=== PATIENT | male | born 1930 | race Caucasian/White ===

== ENCOUNTER 2016-11-24 17:55 | Inpatient (IN) | payer OTHER ==
[~2016-11-24] VITALS: Ht 182.9 cm; Wt 92.5 kg
--- NOTE | 2016-11-24 18:32 | ED NURSING NOTES ---
Clinical Report - Nurses [facility] [place] [address] 11/24/2016 17:56 Patient: PHILLIP COSTA TRIAGE Triage time 18:01. Acuity: LEVEL 3. Chief Complaint: INJURY TO THE LEFT HIP. --18:04 Carmen Lyon R.N. 18:01 11/24/16. BP: 139/86. HR: 79. RR: 18. O2 saturation: 95%. O2 started via nasal cannula at 3 liters/minute. Temp: 97.6 F. Pain level now: 04/25. --18:04 Carmen Lyon R.N. Weight: 93.8 kg stated. Height/Length: 72 inches Per Patient. BMI: 28.1. --17:59 Carmen Lyon R.N. Medications Percocet Oral 5/325 mg, 3x a day as needed (pt reports sometimes he takes this 1-2 times per day. ). --18:05 Carmen Lyon R.N. Aspirin Childrens Oral. --18:06 Carmen Lyno R.N. Allergies No Known Drug Allergy. --17:58 Carmen Lyon R.N. History This occurred just prior to arrival. Mechanism of injury: fell. Treatment ADMISSIONS CLINICIAN: (SHEETED BY MEDICS). PAST MEDICAL HX: Hypertension. Tetanus status: up-to-date. Immunizations: up-to-date. ( COPD). SOCIAL HX: Smoker- current status unknown. Alcohol use; consumes one beer occasionally. Last drink was months ago. History of drug use. (never). No infectious disease exposure. FALL RISK ASSESSMENT: Fall risk assessment completed. Risk factors identified include severe pain and patient history of fall. Fall interventions initiated. Side rails up x2. --18:04 Carmen Lyon R.N. ( left leg internally rotated, shortened.). --18:06 Carmen Lyon R.N. PAST MEDICAL HX: Hypertension. ( copd). --18:24 Carmen Lyon R.N. PAST MEDICAL HX: ( chronic pain). --18:24 Carmen Lyon R.N. Interventions ID band on patient. To treatment room. --18:04 Carmen Lyon R.N. PHYSICAL ASSESSMENT GENERAL / NEURO / PSYCH: Oriented X 4. Alert. Appears in no acute distress. EXTREMITIES: Neuro-vascular status intact to the extremity. Left hip: tenderness. Limited ROM (diminished internal rotation). The left leg is shortened. SKIN: Skin is warm and dry. --18:39 Carmen Lyon R.N. GENERAL / NEURO / PSYCH: Oriented X 4. Alert. Appears in no acute distress. Appears in pain. EXTREMITIES: Limited ROM present in the left lower leg. Capillary refill is less than 2 seconds in the extremities. Extremity pulses are within normal limits. Neuro-vascular status intact to the extremity. ( pt still complaining of left hip pain). SKIN: Skin intact. Skin is warm and dry. --19:15 Wilbert Marshall R.N. 19:13 11/24/16. BP: 136/78. HR: 82. RR: 18. O2 saturation: 94% on room air. Temp: 97.8 F (oral). --19:15 Wilbert Marshall R.N. NURSING PROGRESS NOTES 18:07 11/24/2016 Site #1 started via IV in the left antecubital space with an 18g angiocath; one attempt. Blood drawn: rainbow set. Labeled in the presence of the patient and sent to the lab. --18:07 Carmen Lyon R.N. Patient identifiers checked. Call light placed in reach. Side rails up x 2. Bed placed in lowest position. Brakes of bed on. --18:07 Carmen Lyon R.N. 18:32 11/24/2016 Started bag #1 1000 mL IV Fluids IV NS (Saline); at 1000 mL/hr over 1 hour(s) via site #1. Allergies verified. IV patency established. IV site checked: no pain, redness, or swelling. IV flushed thoroughly pre- and post-medication administration. --18:32 Carmen Lyon R.N. 18:32 11/24/2016 Toradol IVP 30 mg given over 2 minute(s) via site #1. Allergies verified and confirmed 5 rights. IV patency established. IV site checked: no pain, redness, or swelling. IV flushed thoroughly pre- and post-medication administration. --18:32 Carmen Lyon R.N. 18:33 11/24/2016 Dilaudid (HYDROmorphone HCl PF) IVP 1 mg given over 1 minute(s) via site #1. Confirmed 5 rights and sedative warning given to the patient. --18:33 Carmen Lyon R.N. 18:33 11/24/2016 Zofran (Ondansetron HCl) IVP 4 mg given over 1 minute(s) via site #1. Allergies verified and confirmed 5 rights. IV patency established. IV site checked: no pain, redness, or swelling. IV flushed thoroughly pre- and post-medication administration. --18:33 Carmen Lyon R.N. ( report given to Wilbert GONZALEZ). --19:02 Pepe Graham R.N. Extremities: Neuro-vascular status intact to the extremities. Neuro-vascular extremity check. Reassessment after medication administered. Overall patient status is the same- he states feels the same. GENERAL / NEURO / PSYCH: The patient reports pain that is located in the left hip is still present. Alert. Oriented X 4. RESPIRATORY: No respiratory distress. CVS: Capillary refill less than 2 seconds. SKIN: Skin is warm and dry. Side rails up x 2. Bed placed in lowest position. Brakes of bed on. Patient waiting for admit bed. --19:17 Wilbert Marshall R.N. ( Report given to Teresa GONZALEZ for patient transfer to the [facility] floor 2, room 204. RN made aware that patient is being consulted by MD at present and will need pelvic binder (not available in ER-charge nurse confirmed) once patient is on the floor.). --19:45 Wilbert Marshall R.N. 19:30 11/24/2016 IV Fluids IV NS Discontinued: bag #1 completed. Total amount infused: 1000 mL. IV patency established. IV site checked: no pain, redness, or swelling. IV flushed thoroughly. --20:05 Cassandra Mcmanus. DISPOSITION / DISCHARGE Admitted to Acute Care. Transported via stretcher by [employer] with O2. Report was given to a nurse. Report included patient's care, treatment, medications, reviewed medication reconcilliation, and condition (including any recent changes or anticipated changes). All questions were answered. Report was acknowledged and care was transferred. Patient's personal items; items were placed in belongings bag, given to the patient and family and transported with the patient. --20:10 Wilbert Marshall R.N. 20:08 11/24/16. BP: 153/82. HR: 80. RR: 16. O2 saturation: 94% on nasal cannula at 2 liters/minute. O2 started via nasal cannula at 2 liters/minute. Temp: deferred. --20:10 Wilbert Marshall R.N. Departure time: 20:10. --20:10 Wilbert Marshall R.N. Locked/Released at 11/24/2016 20:10 by Wilbert Marshall R.N.
--- NOTE | 2016-11-24 18:32 | ED ORDER SUMMARY ---
..... Patient: PHILLIP COSTA OrderSheet [facility] VisitID: [id number] [address] [place] [address] 86y, M Registration Date/Time: 11/24/2016 ORDER SHEET Weight: 93.8 kg (stated) Allergies: No Known Drug Allergy GENERAL ORDERS: Hip 2V Left w AP Pelvis Urgent (18:03 11/24/2016 HBivens A.R.N.P.) (Ack 18:06 OSnell) (18:33 MCampbell) CBC w Diff Urgent (18:11/24/2016 HBivens A.R.N.P.) (Ack 18:06 OSnell) (20:04 HSoule) CMP Urgent (18:11/24/2016 HBivens A.R.N.P.) (Ack 18:06 OSnell) (20:04 HSoule) Chest 1V Urgent (18:27 11/24/2016 HBivens A.R.N.P.) (Ack 18:31 OSnell) (18:33 MCampbell) - (pelvic binder) (18:33 11/24/2016 HBivens A.R.N.P.) (Ack 18:34 OSnell) (19:35 HSoule) MEDICATION ORDERS: IV FLUIDS: IV NS : initial bolus 1000 mL (1000 mL/hr), then none - (NOW) (18:03 11/24/2016 HBivens A.R.N.P.) (18:32 SStone R.N.) Toradol IV 30 mg (NOW) (18:11/24/2016 HBivens A.R.N.P.) (18:32 SStone R.N.) IV Saline Lock (18:11/24/2016 HBivens A.R.N.P.) (18:31 SStone R.N.) Dilaudid IV 1 mg (HIGH ALERT MEDICATION, NOW) (18:11/24/2016 HBivens A.R.N.P.) (18:33 SStone R.N.) Zofran IV 4 mg (NOW) (18:11/24/2016 HBivens A.R.N.P.) (18:33 SStyarely Marshall) ORDER SHEET NOTES: [Electronically signed by Wilbert Marshall R.N. (20:11/24/2016)] [Electronically locked/signed by Wilbert Marshall R.N. (:11/24/2016)]
--- NOTE | 2016-11-24 18:32 | ED CLINICAL REPORT ---
Clinical Report - Physicians/Mid Levels [facility] [address] [place] [address] 11/24/2016 17:56 Patient: PHILLIP COSTA Time Seen: 1757; upon arrival, initial patient contact, initial documentation, patient care assumed. Arrived- By ambulance. Historian- patient. HISTORY OF PRESENT ILLNESS Chief Complaint: FALL. Location of injuries- left hip. The injury occurred just prior to arrival. Fell while walking and landed on the ground; slipped. Occurred at home. The patient complains of moderate pain. No blow to the head, neck pain, loss of consciousness or seizure. Not dazed. (pcp - [facility]). REVIEW OF SYSTEMS The patient complains of pain on weight bearing. No numbness, loss of vision, chest pain, difficulty breathing or weakness. No abdominal pain or laceration. All systems otherwise negative, except as recorded above. PAST HISTORY See nurses notes. Hypertension. Chronic obstructive pulmonary disease. Umbilical hernia. Back pain. ( Chronic Pain). SOCIAL HISTORY Occasional alcohol use. History of drug use. No recent travel. Is a local resident. FAMILY HISTORY No significant family medical history. ADDITIONAL NOTES The nursing notes have been reviewed with agreement regarding the chief complaint, HPI, ROS, PMH and patient medications and allergies. PHYSICAL EXAM Vital Signs: 11/24/2016 18:01 BP: 139/86. HR: 79. RR: 18. O2 saturation: 95%. Temp: 97.6 F. Pain level now: 1010. Have been reviewed as normal and appear to be correct. Appearance: Alert. Oriented X3. No acute distress. Head: Head non-tender. No swelling of head. Eyes: Pupils equal, round and reactive to light. EOM intact. ENT: No dental injury. Pharynx normal. Neck: Painless ROM. Non-tender. Non-tender. CVS: Heart sounds normal. Pulses normal. Respiratory: Breath sounds normal. Chest nontender. Abdomen: No visible injury. Soft and nontender. Small, tender mass present in the periumbilical area (umbilical hernia). No pulsatile mass present. No guarding present. Mass present. Back: No tenderness. Abnormal ROM. (rom not assessed due to pelvic injury). Skin: Skin intact. Skin warm and dry. Normal skin color. Normal skin turgor. Extremities: Abnormal inspection. Extremities not atraumatic. Pelvis not stable. Left hip: mild tenderness located in the anterior and lateral aspect of the hip. The left leg is shortened and internally rotated. Limited ROM secondary to pain (diminished abduction, adduction, flexion, extension and external and internal rotation). Neurovascular intact distally. No erythema, swelling, laceration, abrasion or ecchymosis. No puncture wound, foreign body or deformity. No lower extremity edema. Neuro: Oriented X 3. No motor deficit. No sensory deficit. LABS, X-RAYS, AND EKG X-Rays: Chest X-ray. Left hip. Chest X-ray: (IMPRESSION: 1. Cardiomegaly with mild pulmonary vascular congestion 2. Bronchitis 3. Bibasilar plate-like atelectasis versus scarring. 4. Hiatal hernia Electronically Final signed by:Vimal Stone MD 11/24/2016 6:42:34 PM). The X-rays were interpreted by the radiologist and contemporaneously by me. Lt Hip X-ray: (IMPRESSION: 1. Left hip subcapital fracture 2. Findings suggestive of Paget's disease Electronically Final signed by:Vimal Stone MD 11/24/2016 6:40:28 PM). The X-rays were interpreted by the radiologist and contemporaneously by me. PROGRESS AND PROCEDURES Course of Care: 1832. pt ate sweet roll and 1/2 cup of coffee around 1300 today, pt will do surgery if they say it is ok, and commented 'they need to fix me' [address] Klein, re admit, will be down to er to see pt 1914. Dr Klein here. Discussed case with on-call health care provider, ([address] baisn, wants pt admitted to hospitalist for clearance for surgery and he will consult and see pt after). Reviewed test results. Agreed upon treatment plan and decision to admit. Health care provider will see patient in hospital. Patient counseled in person regarding the patient's stable condition, test results, diagnosis and need for admission and surgery. 1833. Differential Diagnosis: Other possible considerations: fall, hip fx, dislocation, sprain, contusions, lacs, abrasions. Above considerations are based on history, physical exam, reassessment and X-Ray data. Differential diagnosis was discussed with patient. Disposition: Admitted to Acute Care. 18:32. CLINICAL IMPRESSION Fall on same level by tripping. (Electronically signed by Lisbet Sotelo A.R.N.P. 11/24/2016 20:45) Addenda for PHILLIP COSTA VisitID: [id number] Date: 11/24/2016 11/24/2016 20:12 19:57 11/24/2016 Site #[address] upon admission; patent, no pain and no signs of infection or infiltration. Flushed with 10 mL saline; flushes easily. (Electronically signed by Cassandra Mcmanus 11/24/2016 20:12)
--- NOTE | 2016-11-24 18:32 | ED CLINICAL REPORT ---
Clinical Report - Physicians/Mid Levels [facility] [address] [place] [address] 11/24/2016 17:56 Patient: PHILLIP COSTA Time Seen: 1757; upon arrival, initial patient contact, initial documentation, patient care assumed. Arrived- By ambulance. Historian- patient. HISTORY OF PRESENT ILLNESS Chief Complaint: FALL. Location of injuries- left hip. The injury occurred just prior to arrival. Fell while walking and landed on the ground; slipped. Occurred at home. The patient complains of moderate pain. No blow to the head, neck pain, loss of consciousness or seizure. Not dazed. (pcp - [facility]). REVIEW OF SYSTEMS The patient complains of pain on weight bearing. No numbness, loss of vision, chest pain, difficulty breathing or weakness. No abdominal pain or laceration. All systems otherwise negative, except as recorded above. PAST HISTORY See nurses notes. Hypertension. Chronic obstructive pulmonary disease. Umbilical hernia. Back pain. ( Chronic Pain). SOCIAL HISTORY Occasional alcohol use. History of drug use. No recent travel. Is a local resident. FAMILY HISTORY No significant family medical history. ADDITIONAL NOTES The nursing notes have been reviewed with agreement regarding the chief complaint, HPI, ROS, PMH and patient medications and allergies. PHYSICAL EXAM Vital Signs: 11/24/2016 18:01 BP: 139/86. HR: 79. RR: 18. O2 saturation: 95%. Temp: 97.6 F. Pain level now: 1010. Have been reviewed as normal and appear to be correct. Appearance: Alert. Oriented X3. No acute distress. Head: Head non-tender. No swelling of head. Eyes: Pupils equal, round and reactive to light. EOM intact. ENT: No dental injury. Pharynx normal. Neck: Painless ROM. Non-tender. Non-tender. CVS: Heart sounds normal. Pulses normal. Respiratory: Breath sounds normal. Chest nontender. Abdomen: No visible injury. Soft and nontender. Small, tender mass present in the periumbilical area (umbilical hernia). No pulsatile mass present. No guarding present. Mass present. Back: No tenderness. Abnormal ROM. (rom not assessed due to pelvic injury). Skin: Skin intact. Skin warm and dry. Normal skin color. Normal skin turgor. Extremities: Abnormal inspection. Extremities not atraumatic. Pelvis not stable. Left hip: mild tenderness located in the anterior and lateral aspect of the hip. The left leg is shortened and internally rotated. Limited ROM secondary to pain (diminished abduction, adduction, flexion, extension and external and internal rotation). Neurovascular intact distally. No erythema, swelling, laceration, abrasion or ecchymosis. No puncture wound, foreign body or deformity. No lower extremity edema. Neuro: Oriented X 3. No motor deficit. No sensory deficit. LABS, X-RAYS, AND EKG X-Rays: Chest X-ray. Left hip. Chest X-ray: (IMPRESSION: 1. Cardiomegaly with mild pulmonary vascular congestion 2. Bronchitis 3. Bibasilar plate-like atelectasis versus scarring. 4. Hiatal hernia Electronically Final signed by:Vimal Stone MD 11/24/2016 6:42:34 PM). The X-rays were interpreted by the radiologist and contemporaneously by me. Lt Hip X-ray: (IMPRESSION: 1. Left hip subcapital fracture 2. Findings suggestive of Paget's disease Electronically Final signed by:Vimal Stone MD 11/24/2016 6:40:28 PM). The X-rays were interpreted by the radiologist and contemporaneously by me. PROGRESS AND PROCEDURES Course of Care: 1832. pt ate sweet roll and 1/2 cup of coffee around 1300 today, pt will do surgery if they say it is ok, and commented 'they need to fix me' [address] Klein, re admit, will be down to er to see pt 1914. Dr Klein here. Discussed case with on-call health care provider, ([address] bains, wants pt admitted to hospitalist for clearance for surgery and he will consult and see pt after). Reviewed test results. Agreed upon treatment plan and decision to admit. Health care provider will see patient in hospital. Patient counseled in person regarding the patient's stable condition, test results, diagnosis and need for admission and surgery. 1833. Differential Diagnosis: Other possible considerations: fall, hip fx, dislocation, sprain, contusions, lacs, abrasions. Above considerations are based on history, physical exam, reassessment and X-Ray data. Differential diagnosis was discussed with patient. Disposition: Admitted to Acute Care. 18:32. CLINICAL IMPRESSION Fall on same level by tripping. (Electronically signed by Lisbet Sotelo A.R.N.P. 11/24/2016 20:45) Addenda for PHILLIP COSTA VisitID: [id number] Date: 11/24/2016 11/24/2016 20:12 19:57 11/24/2016 Site #[address] upon admission; patent, no pain and no signs of infection or infiltration. Flushed with 10 mL saline; flushes easily. (Electronically signed by Cassandra Mcmanus 11/24/2016 20:12)
--- NOTE | 2016-11-24 18:32 | ED ORDER SUMMARY ---
..... Patient: PHILLIP COSTA OrderSheet [facility] VisitID: [id number] [address] [place] [address] 86y, M Registration Date/Time: 11/24/2016 ORDER SHEET Weight: 93.8 kg (stated) Allergies: No Known Drug Allergy GENERAL ORDERS: Hip 2V Left w AP Pelvis Urgent (18:03 11/24/2016 HBivens A.R.N.P.) (Ack 18:06 OSnell) (18:33 MCampbell) CBC w Diff Urgent (18:11/24/2016 HBivens A.R.N.P.) (Ack 18:06 OSnell) (20:04 HSoule) CMP Urgent (18:11/24/2016 HBivens A.R.N.P.) (Ack 18:06 OSnell) (20:04 HSoule) Chest 1V Urgent (18:27 11/24/2016 HBivens A.R.N.P.) (Ack 18:31 OSnell) (18:33 MCampbell) - (pelvic binder) (18:33 11/24/2016 HBivens A.R.N.P.) (Ack 18:34 OSnell) (19:35 HSoule) MEDICATION ORDERS: IV FLUIDS: IV NS : initial bolus 1000 mL (1000 mL/hr), then none - (NOW) (18:03 11/24/2016 HBivens A.R.N.P.) (18:32 SStone R.N.) Toradol IV 30 mg (NOW) (18:11/24/2016 HBivens A.R.N.P.) (18:32 SStone R.N.) IV Saline Lock (18:11/24/2016 HBivens A.R.N.P.) (18:31 SStone R.N.) Dilaudid IV 1 mg (HIGH ALERT MEDICATION, NOW) (18:11/24/2016 HBivens A.R.N.P.) (18:33 SStone R.N.) Zofran IV 4 mg (NOW) (18:11/24/2016 HBivens A.R.N.P.) (18:33 SStyarely Marshall) ORDER SHEET NOTES: [Electronically signed by Wilbert Marshall R.N. (20:11/24/2016)] [Electronically locked/signed by Wilbert Marshall R.N. (:11/24/2016)]
--- NOTE | 2016-11-24 18:40 | DIAGNOSTIC IMAGING REPORT ---
PROCEDURE: XR HIP 2VW W W/O AP PELVIS-LT INDICATION: TRAUMA/INJURY TECHNIQUE: AP view of the pelvis and hips with lateral view of the left hip. COMPARISON: None. FINDINGS: LEFT HIP: Subcapital hip fracture with varus angulation PELVIS: Osteopenia. Thickening of the left iliopectineal line and left inferior pubic ramus suspicious for Paget's disease. Right lower quadrant coils consistent with mesh. Severe degenerative changes of the distal lumbar spine. IMPRESSION: 1. Left hip subcapital fracture 2. Findings suggestive of Paget's disease
--- NOTE | 2016-11-24 18:42 | DIAGNOSTIC IMAGING REPORT ---
PROCEDURE: XR CHEST 1 VIEW INDICATION: TRAUMA TECHNIQUE: Portable AP view 06:32 p.m. COMPARISON: None. FINDINGS: Mild bibasilar atelectasis versus scarring. Bronchial wall thickening. Mild cardiomegaly with mild pulmonary vascular congestion. Medial left basilar opacity suggestive of a hiatal hernia. Thorax is normal. IMPRESSION: 1. Cardiomegaly with mild pulmonary vascular congestion 2. Bronchitis 3. Bibasilar plate-like atelectasis versus scarring. 4. Hiatal hernia
[2016-11-24 20:26] VITALS: BP 136/76
--- NOTE | 2016-11-24 20:45 | ED MAR SUMMARY ---
..... Medication Administration Record [facility] [address] [place] [address] Patient: PHILLIP COSTA Visit ID: [id number] 86y, M Weight: 93.8 kg Height/Length: 72 in BMI: 28.1 ALLERGIES: No Known Drug Allergy Start 18:32 11/24/2016 Carmen Lyon R.N., Stop 19:30 11/24/2016 Cassandra Mcmanus, Medication Administered: IV NS (SALINE), Dose: IV Fluids over 1 hour(s), Rate: 1000 mL/hr, Dispensed: 1000 mL bag, Site: #1 left AC. Medication Ordered: IV NS : initial bolus 1000 mL (1000 mL/hr), then none - (NOW). Given 18:11/24/2016 Carmen Lyon R.N. Medication Administered: TORADOL [IVP], Dose: 30 mg IVP over 2 minute(s), Site: #1 left AC. Medication Ordered: Toradol IV 30 mg (NOW). Given 18:33 11/24/2016 Carmen Lyon R.N. Medication Administered: DILAUDID [IVP] (HYDROMORPHONE HCL PF), Dose: 1 mg IVP over 1 minute(s), Site: #1 left AC. Medication Ordered: Dilaudid IV 1 mg (HIGH ALERT MEDICATION, NOW). Given 18:11/24/2016 Carmen Lyon R.N. Medication Administered: ZOFRAN [IVP] (ONDANSETRON HCL), Dose: 4 mg IVP over 1 minute(s), Site: #1 left AC. Medication Ordered: Zofran IV 4 mg (NOW).
--- NOTE | 2016-11-24 20:45 | ED MAR SUMMARY ---
..... Medication Administration Record [facility] [address] [place] [address] Patient: PHILLIP COSTA Visit ID: [id number] 86y, M Weight: 93.8 kg Height/Length: 72 in BMI: 28.1 ALLERGIES: No Known Drug Allergy Start 18:32 11/24/2016 Carmen Lyon R.N., Stop 19:30 11/24/2016 Cassandra Mcmanus, Medication Administered: IV NS (SALINE), Dose: IV Fluids over 1 hour(s), Rate: 1000 mL/hr, Dispensed: 1000 mL bag, Site: #1 left AC. Medication Ordered: IV NS : initial bolus 1000 mL (1000 mL/hr), then none - (NOW). Given 18:11/24/2016 Carmen Lyon R.N. Medication Administered: TORADOL [IVP], Dose: 30 mg IVP over 2 minute(s), Site: #1 left AC. Medication Ordered: Toradol IV 30 mg (NOW). Given 18:33 11/24/2016 Carmen Lyon R.N. Medication Administered: DILAUDID [IVP] (HYDROMORPHONE HCL PF), Dose: 1 mg IVP over 1 minute(s), Site: #1 left AC. Medication Ordered: Dilaudid IV 1 mg (HIGH ALERT MEDICATION, NOW). Given 18:11/24/2016 Carmen Lyon R.N. Medication Administered: ZOFRAN [IVP] (ONDANSETRON HCL), Dose: 4 mg IVP over 1 minute(s), Site: #1 left AC. Medication Ordered: Zofran IV 4 mg (NOW).
--- NOTE | 2016-11-24 20:45 | ED MED RECONCILIATION SUMMARY ---
Patient: PHILLIP COSTA Medication Reconciliation Report [facility] VisitID: [id number] [address] [place] [address] 86y, M Registration Date/Time: 11/24/2016 Weight: 93.8 kg Height/Length: 72 in. BMI: 28.1 ALLERGIES: No Known Drug Allergy The patient's Home Medications are listed below: THE FOLLOWING MEDICATIONS NEED TO BE RECONCILED: Aspirin Childrens Oral Percocet Oral 5/325 mg, 3x a day, pt reports sometimes he takes this 1-2 times per day. The source(s) of the original Home Medication information: Not obtained. The following Medications were given to the patient in the Emergency Department: IV NS IV Fluids bolus 0, then 1000 mL/hr, administered: 11/24/2016 6:32:00 PM Toradol [IVP] IVP 30 mg, administered: 11/24/2016 6:32:00 PM Dilaudid [IVP] IVP 1 mg, administered: 11/24/2016 6:33:00 PM Zofran [IVP] IVP 4 mg, administered: 11/24/2016 6:33:00 PM The following Medications were prescribed to the patient: None.
--- NOTE | 2016-11-24 20:45 | ED DISCHARGE INSTRUCTIONS ---
Patient: PHILLIP COSTA General Instructions [facility] VisitID: [id number] [address] [place] [address] 86y, M Registration Date/Time: 11/24/2016 Fall on same level by tripping. (Electronically signed by Lisbet Sotelo A.R.N.P. 11/24/2016 20:45)
--- NOTE | 2016-11-24 20:45 | ED MED RECONCILIATION SUMMARY ---
Patient: PHILLIP COSTA Medication Reconciliation Report [facility] VisitID: [id number] [address] [place] [address] 86y, M Registration Date/Time: 11/24/2016 Weight: 93.8 kg Height/Length: 72 in. BMI: 28.1 ALLERGIES: No Known Drug Allergy The patient's Home Medications are listed below: THE FOLLOWING MEDICATIONS NEED TO BE RECONCILED: Aspirin Childrens Oral Percocet Oral 5/325 mg, 3x a day, pt reports sometimes he takes this 1-2 times per day. The source(s) of the original Home Medication information: Not obtained. The following Medications were given to the patient in the Emergency Department: IV NS IV Fluids bolus 0, then 1000 mL/hr, administered: 11/24/2016 6:32:00 PM Toradol [IVP] IVP 30 mg, administered: 11/24/2016 6:32:00 PM Dilaudid [IVP] IVP 1 mg, administered: 11/24/2016 6:33:00 PM Zofran [IVP] IVP 4 mg, administered: 11/24/2016 6:33:00 PM The following Medications were prescribed to the patient: None.
--- NOTE | 2016-11-24 20:45 | ED DISCHARGE INSTRUCTIONS ---
Patient: PHILLIP COSTA General Instructions [facility] VisitID: [id number] [address] [place] [address] 86y, M Registration Date/Time: 11/24/2016 Fall on same level by tripping. (Electronically signed by Lisbet Sotelo A.R.N.P. 11/24/2016 20:45)
--- NOTE | 2016-11-24 21:05 | Progress Note ---
Subjective General Admission History and Physical Examination Patient Name: Alber Hawk Admission Date: November 24, 2016 Primary Care Provider: [facility] Attending Physician: Claudio Gonzalez M.D. Admitting Physician: Reid Klein M.D. Code Status: FULL CODE Room: 204 A Status: Inpatient: Acute Care SUBJECTIVE Historian: Patient Reliability: Fair good Chief Complaint: Left hip pain Left femoral neck fracture Injury related to a fall. History of Present Illness: The patient is a 86-year-old white male () with a significant past medical history of COPD, hypertension, osteoarthritis (100% [place] disability), congestive heart failure, who presented to [facility] emergency room on the day of admission secondary to complaints of left hip pain secondary to a fall that occurred 30-60 minutes prior to arrival to the [facility] ED. The ED evaluation was consistent with left femoral neck fracture. Patient was consolable by orthopedic surgery who recommended general medicine admission to manage patient' s history of heart failure, COPD and osteoarthritis. Secondary to the above, the patient was admitted by Reid Klein M.D. for further evaluation and treatment. Patient reports that he stepped off his deck at home and fell 4 feet onto the left buttock. Patient experienced extreme lower back pain. Patient was able to drag himself to the phone. From there he called his daughter and the medics. Medics arrived to the scene. 20 minutes later. Patient was transported to [facility] ED. Upon arrival. X-ray was taken of the left hip. Findings were consistent with a left femoral neck fracture. Patient otherwise has been stable without signs. Respiratory distress. Normal cardiac response stiffness. Normal vitals. Patient reports that he feels dry in his mouth and skin. Patient requesting to have sponges to wipe out his mouth. PAST MEDICAL HISTORY Illnesses: 1. COPD 2. Hypertension 3. Osteoarthritis 4. Paget's disease of the bone Allergies: 1. NKDA Medications: 1. Symbicort 1 inhalation every 12 hours. 2. Spiriva one inhalation every 24 hours 3. Albuterol 1-2 puffs every 4 hours as needed for shortness of breath 4. Lasix 20 mg daily as needed for swelling 5. 20 mEq potassium chloride by mouth taken with potassium with Lasix. 6. Oxycodone-acetaminophen oral 5-325 7. Carvedilol 3.125 mg twice a day. Surgery: left foot orthopedic procedure hernia repair Injuries: 1. Prior injuries to the back and foot. Hospitalizations: 1. [facility] administrative hospitalization more than 20 years ago. FAMILY HISTORY Parents: 1. Fathe, , 2. Mother, Children: Four Adult children Other significant family history: None SOCIAL HISTORY 1. Marital Status: single 2. Evangelical: unknown 3. Education: unknown 4. Employment History: Disability 5. Occupational health exposures: Reports of multiple risks with the . HABITS 1. Tobacco: Reports that he discontinued 3 years ago use, stopped smoking recently 2. Drugs: None 3. Alcohol: Currently drinking beer; reports of up to one beer per evening. 4. Caffeine: Unknown HEALTH SUPERVISION Item/Test unknown Veterans administrative IMMUNIZATIONS: Unknown ADVANCED DIRECTIVES: 1. Living well: No 2. POLST: No 3. Code Status: FULL CODE; with limitations 4. Durable [employer] [facility] care: Patient reports that he would want his daughter, Betzy called. In the event occurred 5. Donor card: No REVIEW OF SYSTEMS Remarkable for those things stated in the history of present illness and past medical history. Seventeen point review of system completed with the following notable findings: Constitutional Denies: Chills, Sweats. Eyes Denies: Vision Change. ENT Denies: Ear Discharge, Other. Respiratory SOB w/exertion, Wheezing. Cardiovascular Denies: Palpitations. Gastrointestinal Denies: Abdominal Pain, Diarrhea. Musculoskeletal Other (left hip pain). Skin Other (dryness of skin). Physical Exam Vital Signs / I&Os Vital Signs Date Time Temp Pulse Resp B/P Pulse O2 O2 Flow FiO2 Ox Delivery Rate 11/24 2025 97.5 89 18 136/76 94 Room Air 2.0 General Appearance Oriented X3, Cooperative HEENT Atraumatic, PERRLA Lungs Clear to auscultation, Normal air movement Neck Supple, No JVD Cardiovascular Regular rate and rhythm, Normal S1 and S2, systolic II/ murmur Abdomen Soft, No tenderness, umbilical hernia, protuberant abdomen Extremities No clubbing, No edema, mild deformity of bilateral feet with VALGUS deformity of bilateral hallux remoteSurgical incision site., exhibits asymmetry and resting position and bilateral hips and feet. Tenderness over most superior part of the pelvis/ to the neck of the Femur Skin No Rashes LAB Results Laboratory Tests 05/11 1818 Chemistry Plasma Sodium (136 - 145 mmol/L) 141 Plasma Potassium (3.5 - 5.1 mmol/L) 3.8 Plasma Chloride (98 - 107 mmol/L) 103 CO2 (Enzymatic) (21 - 32 mmol/L) 27 BUN (7 - 18 mg/dL) 25 Creatinine (0.6 - 1.3 mg/dL) 1.8 Est GFR ( Amer) (mL/min) 46.54 Est GFR (Non-Af Amer) (mL/min) 38.40 Glucose (70 - 110 mg/dL) 120 Plasma Calcium (8.5 - 10.1 mg/dL) 8.8 Total Bilirubin (0.0 - 1.0 mg/dL) 0.4 AST (15 - 37 U/L) 26 ALT (12 - 78 U/L) 25 Alkaline Phosphatase (46 - 116 U/L) 72 Total Protein (6.4 - 8.2 g/dL) 7.7 Albumin (3.3 - 5.0 g/dL) 3.6 Hematology WBC (4.5 - 11.5 K/uL) 9.7 RBC (4.50 - 5.90 M/uL) 4.36 Hgb (13.5 - 17.5 gm/dL) 13.1 Hct (41.0 - 53.0 %) 39.6 MCV (80 - 100 fL) 91 MCH (26 - 34 pg) 30 RDW (11.6 - 14.8 %) 13.6 Neut % (Auto) (50 - 75 %) 71.8 Lymph % (Auto) (25 - 40 %) 18.5 [place] % (Auto) (3 - 14 %) 6.7 Eos % (Auto) (0 - 4 %) 2.6 Baso % (Auto) (0 - 2 %) 0.4 Plt Count, EDTA (150 - 400 K/uL) 243 PUBS MCHC (31 - 37 g/dL) 33 Imaging Chest x-ray. 1. Cardiomegaly with mild pulmonary vascular congestion 2. Bronchitis 3. Bibasilar plate-like atelectasis versus scarring. Hip x-ray 1. Left hip subcapital fracture 2. Findings suggestive of Paget's disease Assessment and Plan Problem List 1. COPD (chronic obstructive pulmonary disease) Plan Patient currently on 4 L of O2, maintaining sats above 92%. He is at risk for challenging management during ventilatory procedures. Patient will undergo a low cardiac risk procedure for the left hip. The setting of a Paget's bone disease, leading to excess bleeding. It is recommended the patient be on a lower risk procedure Continue to support the airway. duoNebs every 4-6 hours Advair twice a day Continue with nasal cannula O2, maintain saturations above 92%. 2. Osteoarthritis Plan Multiple arthritic joints in the upper and lower spine. Seen today with fracture left hip. Patient with history of Paget's disease of bone. Patient is followed through the veterans administrative program 3. Hypertension Plan Plan to monitor and maintain blood pressure Maintain on an BRENDA inhibitor and beta bert at this time. 4. 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 [facility]. Consider low cardiac risk for orthopedic procedure. However, in this circumstance of a Paget's disease and typical prolonged bleeding following manipulation. He will be efficacious to avoid the more radical procedure. Attempt to optimize cardiac function. 5. Paget's disease of bone Plan Paget's disease has a higher risk for bleed; caution with aggressive proceedings. 6. Left displaced femoral neck fracture Status Acute Onset Date 11/24/16 Plan Femoral neck fracture. Orthopedic consulted. Current status: Guarded, unstable Anticipated discharge date: Anticipated discharge in 2-3 day Anticipated discharge placement: Home Patient care time: Time spent in chart review, patient interview, physical exam, CPOE, and care documentation: 70 minutes Visit to patient today: 1 Complexity of care: [id number] Initial patient evaluation: Emergency department DVT prophylaxis: Mechanical; GI ppx , Fametidine 20 mg by mouth twice a day
--- NOTE | 2016-11-24 22:26 | Progress Note ---
Subjective General ADVANCED CARE PLAN History of Present Illness 86-year-old white male () with a significant past medical history of COPD , hypertension, osteoarthritis (100% [place] disability), congestive heart failure, who presented to [facility] emergency room on the day of admission secondary to complaints of left hip pain secondary to a fall that occurred 30-60 minutes prior to arrival to the [facility] ED. The ED evaluation was consistent with left femoral neck fracture. Patient was consolable by orthopedic surgery who recommended general medicine admission to manage patient's history of heart failure, COPD and osteoarthritis. Secondary to the above, the patient was admitted by Reid Klein M.D. for further evaluation and treatment. A discussion was undertaken with the patient regarding previous advance care arrangements/decisions. The following advanced directives were noted by the patient and discussed with me at the time of admission. ADVANCED DIRECTIVES: 1. Living well: not available 2. POLST: none 3. CODE STATUS: full with limitations 4. [facility] care: Betzy Hawk, daughter. 5. Donor card: none He has opted not to pursue intubation/mechanical ventilation, CPR, electrical cardioversion, or life-sustaining efforts involving drugs at the time of cardiopulmonary arrest. The patient has a Full Code with limitations The patient's wishes were documented in the chart and orders regarding the patient's wishes entered into the [employer] CPOE system. The "Advance Care Plan Document" was not distributed to patient to discuss with his family. Less than 30 minutes was spent in performing the above tasks and documentation of the patient's advanced care plan.
--- NOTE | 2016-11-24 22:26 | Progress Note ---
Subjective General ADVANCED CARE PLAN History of Present Illness 86-year-old white male () with a significant past medical history of COPD , hypertension, osteoarthritis (100% [place] disability), congestive heart failure, who presented to [facility] emergency room on the day of admission secondary to complaints of left hip pain secondary to a fall that occurred 30-60 minutes prior to arrival to the [facility] ED. The ED evaluation was consistent with left femoral neck fracture. Patient was consolable by orthopedic surgery who recommended general medicine admission to manage patient's history of heart failure, COPD and osteoarthritis. Secondary to the above, the patient was admitted by Reid Klein M.D. for further evaluation and treatment. A discussion was undertaken with the patient regarding previous advance care arrangements/decisions. The following advanced directives were noted by the patient and discussed with me at the time of admission. ADVANCED DIRECTIVES: 1. Living well: not available 2. POLST: none 3. CODE STATUS: full with limitations 4. [facility] care: Betzy Hawk, daughter. 5. Donor card: none He has opted not to pursue intubation/mechanical ventilation, CPR, electrical cardioversion, or life-sustaining efforts involving drugs at the time of cardiopulmonary arrest. The patient has a Full Code with limitations The patient's wishes were documented in the chart and orders regarding the patient's wishes entered into the [employer] CPOE system. The "Advance Care Plan Document" was not distributed to patient to discuss with his family. Less than 30 minutes was spent in performing the above tasks and documentation of the patient's advanced care plan.
--- NOTE | 2016-11-24 22:38 | Consultation Report ---
Admission Admit Date 11/24/16 History Chief Complaint Left groin, lateral hip and low back pain. 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 Thought he fractured his back but was able to get up to phone but unable to bear weight or walk due to "twisted" (externally rotated) L lower extremity. 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 Brought to [place] ED where x-rays showed varus impacted L subcapital femoral neck fx, perserved hip joint space but extensive Pagetic bone changes. Admitted to Hospitalist. Dr. Klein cleared for surgery tomorrow but concerned that prolonged surgery or extensive blood loss may make it difficult to get him off the ventilator. Pt and his adult children interviewed and chart reviewed. Denies hx MRSA, DVT/PE, bleeding disorder. Patient History 1. Left displaced femoral neck fracture 2. COPD (chronic obstructive pulmonary disease) 3. Osteoarthritis 4. Hypertension 5. CHF (congestive heart failure), NYHA class II 6. Paget's disease of bone Social History Lives alone with pets. Is full code. Daughter, Betzy Hawk [phone], son Ed [phone] and his at bedside. Advance Directive None (Full code per hospitalist note) Medications and Allergies Medications Current Medications Sig/Ya Start time Last Medication Dose Route Stop Time Status Admin Pantoprazole Sodium 40 MG DAILY@0600 05/ 0600 AC IV Fluticasone/ See Dose RTBID 11/24 2021 AC Salmeterol Insts (1) IN Albuterol/Ipratropium 3 ML Q6H PRN 11/24 2014 AC IN Al Hydrox/Mg Hydrox/ 15 ML Q1H PRN 11/25 1999 AC Simethicone PO Atropine Sulfate 0.5 MG Q3MIN PRN 11/25 1999 AC IV Hydromorphone HCl 1 MG Q3H PRN 11/25 1999 AC IV Lactated Ringer's 1,000 ML ASDIRECTED 11/25 1999 AC IV Lidocaine HCl See Dose ONCE PRN 11/25 1999 AC Insts (2) IV Magnesium Hydroxide 10 ML DAILY PRN 11/25 1999 AC PO Morphine Sulfate 2 MG Q3M PRN 11/25 1999 AC IV Naloxone HCl 0.4 MG PRN PRN 11/25 1999 AC IV Nitroglycerin 0.4 MG Q5M PRN 11/25 1999 AC SL Zolpidem Tartrate 5 MG QHS PRN 11/25 1999 AC PO Ondansetron HCl 4 MG Q4H PRN 11/24 1899 AC IV Sodium Chloride 1,000 ML ASDIRECTED 11/24 1899 AC 11/24 IV 2039 Dose Instructions: (1)Fluticasone/Salmeterol: 1 CLICK (2)Lidocaine HCl: 1.5 MG/KG Allergies Coded Allergies: NKA (11/24/16) Review of Systems Constitutional Denies: Fever, Chills, Sweats, Weakness, Malaise. Respiratory SOB w/exertion. Denies: Cough, Dry, Wheezing, Hemoptysis, Pleuritic Pain, Sputum. Cardiovascular Denies: Chest Pain, Palpitations, Orthopnea, PND, Edema, Light-headedness. Musculoskeletal Neck Pain, Shoulder Pain, Back Pain, Leg Pain. Skin Denies: Rash, Lesions, Jaundice, Bruising. Neurological Numbness. Denies: Weakness, Incoordination, Change in speech, Confusion, Seizures. Physical Exam Vital Signs / I&Os Vital Signs Date Time Temp Pulse Resp B/P Pulse O2 O2 Flow FiO2 Ox Delivery Rate 11/24 2025 36.4 89 18 136/76 94 Room Air 2.0 General Appearance Alert, Oriented X3, Cooperative, No acute distress HEENT Atraumatic, EOMI Lungs Normal air movement Neck Normal exam Extremities L LE externally rotated but not short. Tender at L greater trochanter. 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 Skin No Rashes, No Breakdown, No Significant Lesions Neurological Normal speech (subjectively dec SILT B feet), Sensation intact, No lateralizing signs Psych/Mental Status Mental status normal, Mood normal LAB Results Laboratory Tests 11/24 1817 Chemistry Plasma Sodium (136 - 145 mmol/L) 141 Plasma Potassium (3.5 - 5.1 mmol/L) 3.8 Plasma Chloride (98 - 107 mmol/L) 103 CO2 (Enzymatic) (21 - 32 mmol/L) 27 BUN (7 - 18 mg/dL) 25 Creatinine (0.6 - 1.3 mg/dL) 1.8 Est GFR ( Amer) (mL/min) 46.54 Est GFR (Non-Af Amer) (mL/min) 38.40 Glucose (70 - 110 mg/dL) 120 Plasma Calcium (8.5 - 10.1 mg/dL) 8.8 Total Bilirubin (0.0 - 1.0 mg/dL) 0.4 AST (15 - 37 U/L) 26 ALT (12 - 78 U/L) 25 Alkaline Phosphatase (46 - 116 U/L) 72 Total Protein (6.4 - 8.2 g/dL) 7.7 Albumin (3.3 - 5.0 g/dL) 3.6 Hematology WBC (4.5 - 11.5 K/uL) 9.7 RBC (4.50 - 5.90 M/uL) 4.36 Hgb (13.5 - 17.5 gm/dL) 13.1 Hct (41.0 - 53.0 %) 39.6 MCV (80 - 100 fL) 91 MCH (26 - 34 pg) 30 RDW (11.6 - 14.8 %) 13.6 Neut % (Auto) (50 - 75 %) 71.8 Lymph % (Auto) (25 - 40 %) 18.5 [place] % (Auto) (3 - 14 %) 6.7 Eos % (Auto) (0 - 4 %) 2.6 Baso % (Auto) (0 - 2 %) 0.4 Plt Count, EDTA (150 - 400 K/uL) 243 PUBS MCHC (31 - 37 g/dL) 33 Imaging PROCEDURE: XR CHEST 1 VIEW INDICATION: TRAUMA TECHNIQUE: Portable AP view 06:32 p.m. COMPARISON: None. FINDINGS: Mild bibasilar atelectasis versus scarring. Bronchial wall thickening. Mild cardiomegaly with mild pulmonary vascular congestion. Medial left basilar opacity suggestive of a hiatal hernia. Thorax is normal. IMPRESSION: 1. Cardiomegaly with mild pulmonary vascular congestion 2. Bronchitis 3. Bibasilar plate-like atelectasis versus scarring. 4. Hiatal hernia Dictated by: ANAM QUINTEROS MD Pelvic & L Hip x-ray: Varus impacted L subcapital femoral neck fx with preserved hip joint space and extensive corsening of trabecular patern and tickening of cortical bone c/w Pagets dz of bone. Assessment and Plan Problem List 1. Left displaced femoral neck fracture Onset Date 11/24/16 Status Acute Plan Discussed options of Hemiarthroplasty versus closed reduction and cannulated screw fixation. Risks of hemiarthroplasty are great with Pagetic bone known to bleed extensively and prolonged surgery risks cariopulmonary complication including inability to get of ventilator, as well as risks of fx, dislocation, infection, nerve injury, limb length inequality, DVT/PE and as well as failure to obtain goals of restored ability to ambulate and transfer/sit up etc. Risks of non-op treatment include DVT/PE, pain, decubiti, pneumonia and . Alternative of closed reduction and cannulated screw fixation has MUCH lower risks of bleeding, infection, nerve injury, but risks persistent fx pain, nonunion, avascular necrosis (AVN) with collapse and screw cutout with need for total hip replacement in months. After extensive discussions with pt, family and hospitalist; patient has selected closed reduction and cannulated screw fixation. Conmsent signed, site marked, OR scheduled for 7 am. NPO after midnight. Will get back x-rays after hip fx stabilized to reduce risk of disimpacting fx and having increased displacement which can increase risk of AVN. 2. COPD (chronic obstructive pulmonary disease) 3. Osteoarthritis 4. Hypertension 5. CHF (congestive heart failure), NYHA class II 6. Paget's disease of bone
[2016-11-24 22:40] VITALS: BP 117/74
[2016-11-24] MEDS ORDERED: ALBUTEROL HFA60 DOSE IN (22:57)
[2016-11-24] MEDS ORDERED: SYMBICORT1 AE1 IN (22:58)
[2016-11-24] MEDS ORDERED: ASPIRIN81 M1 PO (23:00)
[2016-11-24] MEDS ORDERED: CHLORTHALIDONE25 MG PO (23:03)
[2016-11-24] MEDS ORDERED: COZAAR100 MG PO (23:04)
[2016-11-24] MEDS ORDERED: PRILOSEC20 MG PO (23:06)
[2016-11-24] MEDS ORDERED: TERAZOSIN HCL1 MG PO (23:08)
[2016-11-24] MEDS ORDERED: POLYETHYLENE3350 MG PO (23:10)
[2016-11-24] MEDS ORDERED: OMEPRAZOLE40 MG PO (23:17)
[2016-11-24] MEDS ORDERED: PERCOCET1 TA1 PO (23:22)
[2016-11-24] MEDS ORDERED: OXAYDO5 MG PO (23:34)
[2016-11-25] VITALS (10 sets, daily range): BP systolic 121–142; BP diastolic 47–71
--- NOTE | 2016-11-25 06:43 | Progress Note ---
Subjective General Note Date: November 25, 2016 Admission Date: November 24, 2016 Hospital Day: 2 PCP: Unknown Status: Inpatient, ACU Advanced Directive: FULL CODE Room: 204-A Brief History: The patient is a 86-year-old white male () with a significant past medical history of COPD, hypertension, osteoarthritis (100% [place] disability), congestive heart failure, who presented to [facility] emergency room on the day of admission secondary to complaints of left hip pain secondary to a fall that occurred 30-60 minutes prior to arrival to the [facility] ED. The ED evaluation was consistent with left femoral neck fracture. Patient was seen by orthopedic surgery who recommended general medicine admission to manage patient's history of heart failure, COPD and osteoarthritis. Secondary to the above, the patient was admitted by Reid Klein M.D. for further evaluation and treatment with orthopedic consultation by Dr. Dylan Mccoy. For other history present illness, past medical history, family history, social history, review of systems, and admission physical examination please see the patient's history and physical examination and ER visit note in the patient's medical record. Subjective: The patient states he is doing well. No complaints of mainly postop. Patient requests: None Medications and Allergies Medications Current Medications Sig/Ya Start time Last Medication Dose Route Stop Time Status Admin Terazosin HCl 10 MG QHS 11/25 2100 AC PO Losartan Potassium 100 MG DAILY 11/25 1533 AC 11/25 PO 1639 Cefazolin Sodium/ 100 ML Q8HR 11/25 1400 AC 11/25 Dextrose IV 11/26 0620 1402 Aspirin 325 MG BID 11/25 0900 AC PO 01/05 2101 Pantoprazole Sodium 40 MG DAILY@0600 11/25 0600 AC 11/25 IV 0614 Fluticasone/ See Dose RTBID 11/24 2021 AC Salmeterol Insts (1) IN Albuterol/Ipratropium 3 ML Q6H PRN 11/24 2014 AC IN Al Hydrox/Mg Hydrox/ 15 ML Q1H PRN 11/25 1999 AC Simethicone PO Atropine Sulfate 0.5 MG Q3MIN PRN 11/25 1999 AC IV Hydromorphone HCl 1 MG Q3H PRN 11/25 1999 AC 11/25 IV 1353 Lactated Ringer's 1,000 ML ASDIRECTED 11/25 1999 AC IV Lidocaine HCl See Dose ONCE PRN 11/25 1999 AC Insts (2) IV Magnesium Hydroxide 10 ML DAILY PRN 11/25 1999 AC PO Morphine Sulfate 2 MG Q3M PRN 11/25 1999 AC IV Naloxone HCl 0.4 MG PRN PRN 11/25 1999 AC IV Nitroglycerin 0.4 MG Q5M PRN 11/25 1999 AC SL Zolpidem Tartrate 5 MG QHS PRN 11/25 1999 AC PO Ondansetron HCl 4 MG Q4H PRN 11/24 1899 AC IV Sodium Chloride 1,000 ML ASDIRECTED 11/24 1899 AC 11/25 IV 0614 Dose Instructions: (1)Fluticasone/Salmeterol: 1 CLICK (2)Lidocaine HCl: 1.5 MG/KG Allergies Coded Allergies: NKA (11/25/16) Physical Exam Vital Signs / I&Os Vital Signs Date Time Temp Pulse Resp B/P Pulse O2 O2 Flow FiO2 Ox Delivery Rate 11/25 0640 92 Nasal 5.0 Cannula 11/25 0634 98.2 93 20 131/62 88 Nasal 2.0 Cannula 11/25 0221 98.2 90 17 142/68 92 Nasal 2.0 Cannula 11/25 0048 2.0 11/24 2345 Nasal 2.0 Cannula 11/24 2240 97.9 96 17 117/74 93 Room Air 2.0 11/24 2025 97.5 89 18 136/76 94 Room Air 2.0 General Appearance Cooperative, No acute distress, slightly lethargic Neurological Cranial nerves intact, Strength 5/5 x4 ext's, No lateralizing signs Psych/Mental Status Confused, slightly lethargic LAB Results Laboratory Tests 11/25 11/25 11/24 0546 0546 1818 Chemistry Plasma Sodium (136 - 145 mmol/L) 144 141 Plasma Potassium (3.5 - 5.1 mmol/L) 4.3 3.8 Plasma Chloride (98 - 107 mmol/L) 109 103 CO2 (Enzymatic) (21 - 32 mmol/L) 27 27 BUN (7 - 18 mg/dL) 28 25 Creatinine (0.6 - 1.3 mg/dL) 1.7 1.8 Est GFR ( Amer) (mL/min) 49.71 46.54 Est GFR (Non-Af Amer) (mL/min) 41.01 38.40 Glucose (70 - 110 mg/dL) 111 120 Hemoglobin A1c % (4.5 - 6.2 %) 5.6 Plasma Calcium (8.5 - 10.1 mg/dL) 8.0 8.8 Plasma Magnesium (1.8 - 2.4 mg/dL) 1.7 Total Bilirubin (0.0 - 1.0 mg/dL) 0.4 AST (15 - 37 U/L) 26 ALT (12 - 78 U/L) 25 Alkaline Phosphatase (46 - 116 U/L) 72 Total Protein (6.4 - 8.2 g/dL) 7.7 Albumin (3.3 - 5.0 g/dL) 3.6 Triglycerides (30 - 200 mg/dL) 44 Cholesterol (140 - 200 mg/dL) 168 LDL Cholesterol, Calc (mg/dL) 103 HDL Cholesterol (32 - 96 mg/dL) 57 LDL/HDL Ratio 1.8 Cholesterol/HDL Ratio 2.9 Coronary Risk Interp (0.4 - 1.0) 0.7 Hematology WBC (4.5 - 11.5 K/uL) 9.7 RBC (4.50 - 5.90 M/uL) 4.36 Hgb (13.5 - 17.5 gm/dL) 13.1 Hct (41.0 - 53.0 %) 39.6 MCV (80 - 100 fL) 91 MCH (26 - 34 pg) 30 RDW (11.6 - 14.8 %) 13.6 Neut % (Auto) (50 - 75 %) 71.8 Lymph % (Auto) (25 - 40 %) 18.5 [place] % (Auto) (3 - 14 %) 6.7 Eos % (Auto) (0 - 4 %) 2.6 Baso % (Auto) (0 - 2 %) 0.4 Plt Count, EDTA (150 - 400 K/uL) 243 PUBS MCHC (31 - 37 g/dL) 33 Imaging Chest X-Ray IMPRESSION: 1. Cardiomegaly with mild pulmonary vascular congestion 2. Bronchitis 3. Bibasilar plate-like atelectasis versus scarring. 4. Hiatal hernia Dictated by: ANAM QUINTEROS MD D: MARY JANE;11/24/16 4600 Assessment and Plan Problem List 1. Left displaced femoral neck fracture Status Acute Onset Date 11/24/16 Plan -Follow per orthopedics -See Dr. Mccoy's notes 2. COPD (chronic obstructive pulmonary disease) Plan -Stable -DuoNeb one via nebulizer every 6 hours when necessary shortness of breath -Advair Diskus 250/50 one inhalation twice a day 3. Hypertension Plan -Patient with long-standing history of hypertension -Low-salt diet -Cozaar 100 mg by mouth daily -Hytrin 10 mg by mouth daily at bedtime -Monitor 4. CHF (congestive heart failure), NYHA class II Plan -Patient with history of CHF -Not traumatic at this time -Continue Cozaar 100 mg by mouth daily -Check BNP -Monitor -Mild pulmonary vascular congestion on chest x-ray. Current status: Fair, stable Anticipated discharge date: Anticipated discharge per orthopedics Anticipated discharge placement: long term facility Patient care time: Time spent in chart review, patient interview, physical exam, CPOE, and care documentation: 25 minutes Visit to patient today: 1 Complexity of care: Moderate E&M Codes Rounding: Inpt-Moderate/25741
--- NOTE | 2016-11-25 09:40 | Postoperative Progress Note ---
Postop Progress Note Preoperate Diagnosis: Varus impacted L subcapital femoral neck fx Postoperative Diagnosis: L subcapital femoral neck fx with basicervical extension Surgeon: Dylan Mccoy MD Anesthesia: General ETT Findings: See dictation Procedure: Closed reduction L femoral neck fx and Cephallomedulary fixation with 11.5mm x 18cm 125degree Intertan with 105mm lag and 100mm compression screws and single static distal interlock. Complications? No Condition: Stable EBL: 50mL Fluid(s): 250mL Drain(s): None Blood Administered: None Specimen(s) removed? No Grafts or Implants? Yes (see above) . (See nursing notes for details of grafts/implants)
--- NOTE | 2016-11-25 10:48 | DIAGNOSTIC IMAGING REPORT ---
PROCEDURE: XR HIP PINNING W/TALYA - LEFT INDICATION: HIP PINNING TECHNIQUE: Intraoperative fluoroscopy provided for left hip pinning. Total fluoro time 1 minute 49 seconds, cumulative dose 47.3 mGy. COMPARISON: Plain films 11/24/2016 FINDINGS: Six intraoperative fluoroscopic spot images of the left hip demonstrate a subcapital femoral neck fracture in anatomic position. Subsequent images demonstrate hardware fixation of the fracture with good position of intramedullary nichelle and femoral neck screws. IMPRESSION: 1. Intraoperative fluoroscopy for left hip pinning.
--- NOTE | 2016-11-25 14:03 | OPERATIVE REPORT ---
DATE OF SURGERY: 11/25/2016 SURGEON: Dylan Mccoy MD PREOPERATIVE DIAGNOSIS: 1. Varus impacted left subcapital femoral neck fracture POSTOPERATIVE DIAGNOSIS: 1. Left subcapital femoral neck fracture with basicervical extension PROCEDURE PERFORMED: 1. Closed reduction and cephalomedullary fixation with [employer] short Intertan nail, 11.5 mm diameter by 18 cm long, 125 degree with 105 mm lag screw, 100 mm compression screw, and a single distal static interlock screw ANESTHESIA: General endotracheal anesthesia. ESTIMATED BLOOD LOSS: 50 mL. Blood replacement, 250 mL intravenous crystalloid fluids, no blood products. CONDITION: On patient leaving the operating room stable and satisfactory. INDICATIONS: An 86-year-old male with oxygen-dependent chronic obstructive pulmonary disease at home, congestive heart failure, hypertension and Paget's disease of bone sustained a 3-4 foot ground level fall off his back deck down 3 steps onto his back and sustained the above fracture. He also had back pain. He was admitted to the hospitalist service and he was felt to be at high risk for prolonged general anesthesia with difficulty getting off the ventilator postop. He was also felt to be at increased risk for intraoperative bleeding and blood loss due to his Paget's disease of bone and, for those reasons, the patient in consultation with the hospitalist and myself decided it would be safer to accept the risks of avascular necrosis and perform a closed reduction and internal fixation. Initial plan was for cannulated screws. SURGICAL FINDINGS: The patient was found to have fracture extension into the base of the femoral neck and therefore a fixed angle device was utilized in place of the cannulated screws. Bone quality was felt to be fair. Reduction was near anatomic. Around the world fluoroscopy views confirmed that the hardware was wholly contained within the proximal femur and did not violate the hip joint. PLAN: The patient will have lumbar spine x-rays given his back pain and x-rays of his operative hip and then, assuming no unexpected findings, he will be weightbearing as tolerated with physical therapy on bilateral lower extremities using a walker and have fall precautions. He will receive 23 hours of perioperative antibiotics in the form of cefazolin. He will have physical therapy work with him and he will return to the care of the hospitalist service for medical management. He will return to the clinic in approximately 2 weeks for wound check and in 6 weeks for x-rays of the hip. Thromboembolic prophylaxis will be with QUINN hose, pneumatic compression devices and ambulation as well as enteric-coated aspirin 325 mg twice daily for 6 weeks. He will require radiographic followup until fracture healing with close attention to look for signs of avascular necrosis. SURGICAL TECHNIQUE: The patient was identified in the preoperative holding area, he denied any interval change in his medical condition since last night, although his pain was decreased with rest. He was seen and evaluated by Anesthesia and nursing services and brought back to the operating room. Two grams of cefazolin were given intravenously for antibiotic prophylaxis. He was positioned supine on the fracture table after general endotracheal anesthesia was administered. He did require suctioning of his lungs and gastrum. There did not appear to be any gastric contents in the lungs suctionings. The well leg was placed in the well leg mayo. The operative leg was placed in the traction boot. Perineum was brought down against the perineal post and gentle traction and internal rotation were applied. A surgical pause was completed, confirming the correct patient, operative site, procedure, appropriate availability of cannulated screw implants. We also confirmed perioperative antibiotics, lack of allergies and thromboembolic prophylaxis with pneumatic compression device working on the nonoperative leg. C-arm was then brought in and images of the left hip were obtained, which showed the fracture extension into the base of the femoral neck on both the AP and lateral projections. The decision was made to move to a fixed angle implant. A short Intertan nail was available in-house and that was selected. While the implants and instrumentation were being brought up, the patient was prepped and draped with ChloraPrep for the skin and a shower curtain with Ioban impregnated adhesive for the operative site. Once we confirmed the availability of instruments and implants, the fluoroscopy was brought back in and the trajectory of the nail entry incision and the hardware was marked on the drapes. A 2.5 cm incision was made in line with the axis of the femur approximately a hands breadth proximal to the tip of the greater trochanter, carried sharply through skin and subcutaneous tissues. Metzenbaum scissors were used to spread down to the tip of the greater trochanter and a 3.2 mm guide pin was used manually to enter into the proximal femur. Fluoroscopy showed the guide pin starting position was good. We adjusted the trajectory until it was aimed down the femoral canal and then placed the soft tissue protector sleeve and reamed with the channel reamer and opening reamer down to the subtrochanteric region. The reamer and guidepin were removed and the 11.5 mm diameter by 18 cm long, 125 degree Ramon [employer] Nephew Intertan cephalomedullary nail was inserted into the canal. It was placed to the appropriate depth and then rotation was controlled while the entry incision for the lag screw and nested compression screw was made. The guidepin was advanced up the compression screw axis and position was confirmed under multiplanar fluoroscopy, advanced to within 5 mm of the subchondral bone on around the world imaging was performed to make sure that the guide pin did not penetrate the hip joint. The guide pin measured 107 to 110 mm in bone and a 105 mm lag screw was selected. We drilled for the compression screw, placed the antirotation bar and then used the cannulated reamer for the lag screw. A 105 mm lag screw was then inserted under fluoroscopic observation to the appropriate depth to minimize the tip apex distance, but make sure that there was no risk of violating the subchondral bone. Once this was confirmed under multiplanar fluoroscopy, the compression screw was placed. The insertion handle was then used to place the static distal interlock screw percutaneously using standard technique. Appropriate length screw was 35 mm in length and 4.5 mm in diameter and bicortical and through the nichelle. The insertion handle was removed and final fluoroscopic images were saved to be archived. We also loosened up the traction and used live fluoroscopy and hip rotation to perform around the world views again to confirm that there was no hardware violating the subchondral bone. Once this was complete, the wounds were copiously irrigated, infiltrated with Marcaine with epinephrine and closed with inverted undyed 2-0 subdermal sutures and 3-0 V-Loc subcuticular sutures for the 2 proximal incisions. Steri-Strips and Dermabond were then applied for the skin, followed by Adaptic and Op-Site dressings. The patient was undraped, reversed from anesthesia and brought to the recovery room in stable and satisfactory condition having tolerated the procedure well without apparent complication. All sponge, needle and instrument counts were reported correct prior to leaving the operating room.
--- NOTE | 2016-11-25 15:27 | DIAGNOSTIC IMAGING REPORT ---
PROCEDURE: XR HIP 2VW W W/O AP PELVIS-LT INDICATION: s/p closed reduction TECHNIQUE: AP view of the pelvis and hips with lateral view of the left hip. COMPARISON: Hip and pelvis films 11/24/2016 FINDINGS: Left HIP: Left femoral neck fractures been fixed with two screws and an intramedullary nichelle. Anatomic alignment. 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 Anatomic alignment status post fixation left femoral neck fracture
--- NOTE | 2016-11-25 15:42 | DIAGNOSTIC IMAGING REPORT ---
PROCEDURE: XR LUMBAR SPINE 2 OR 3 VIEWS INDICATION: r/o fx p fall TECHNIQUE: Three views. COMPARISON: None. FINDINGS: Demineralization. No evidence of an acute process or fracture. IMPRESSION: 1. Negative lumbar spine.
[2016-11-26 02:15] VITALS: BP 120/44
--- NOTE | 2016-11-26 06:26 | Progress Note ---
Subjective General Note Date: November 26, 2016 Admission Date: November 24, 2016 Hospital Day: 3 PCP: Unknown Status: Inpatient, ACU Advanced Directive: FULL CODE Room: 204-A Brief History: The patient is a 86-year-old white male () with a significant past medical history of COPD, hypertension, osteoarthritis (100% [place] disability), congestive heart failure, who presented to [facility] emergency room on the day of admission secondary to complaints of left hip pain secondary to a fall that occurred 30-60 minutes prior to arrival to the [facility] ED. The ED evaluation was consistent with left femoral neck fracture. Patient was seen by orthopedic surgery who recommended general medicine admission to manage patient's history of heart failure, COPD and osteoarthritis. Secondary to the above, the patient was admitted by Reid Klein M.D. for further evaluation and treatment with orthopedic consultation by Dr. Dylan Mccoy. For other history present illness, past medical history, family history, social history, review of systems, and admission physical examination please see the patient's history and physical examination and ER visit note in the patient's medical record. Subjective: The patient voices no specific complaints at this time. Pain adequately controlled. Mild shortness of breath. Patient requests: None Medications and Allergies Medications Current Medications Sig/Ya Start time Last Medication Dose Route Stop Time Status Admin Terazosin HCl 10 MG QHS 11/25 2100 AC 11/25 PO 210 Losartan Potassium 100 MG DAILY 11/25 1533 AC 11/25 PO 1639 Aspirin 325 MG BID 11/25 0900 AC 11/25 PO 01/05 210 210 Pantoprazole Sodium 40 MG DAILY@0600 11/25 0600 AC 11/25 IV 0614 Fluticasone/ See Dose RTBID 11/24 2021 AC Salmeterol Insts (1) IN Albuterol/Ipratropium 3 ML Q6H PRN 11/24 2014 AC IN Al Hydrox/Mg Hydrox/ 15 ML Q1H PRN 11/25 1999 AC Simethicone PO Atropine Sulfate 0.5 MG Q3MIN PRN 11/25 1999 AC IV Hydromorphone HCl 1 MG Q3H PRN 11/25 1999 AC 11/25 IV 2106 Lactated Ringer's 1,000 ML ASDIRECTED 11/25 1999 AC IV Lidocaine HCl See Dose ONCE PRN 11/25 1999 AC Insts (2) IV Magnesium Hydroxide 10 ML DAILY PRN 11/25 1999 AC PO Morphine Sulfate 2 MG Q3M PRN 11/25 1999 AC IV Naloxone HCl 0.4 MG PRN PRN 11/25 1999 AC IV Nitroglycerin 0.4 MG Q5M PRN 11/25 1999 AC SL Zolpidem Tartrate 5 MG QHS PRN 11/25 1999 AC PO Ondansetron HCl 4 MG Q4H PRN 11/24 1899 AC IV Sodium Chloride 1,000 ML ASDIRECTED 11/24 1899 AC 11/25 IV 2330 Dose Instructions: (1)Fluticasone/Salmeterol: 1 CLICK (2)Lidocaine HCl: 1.5 MG/KG Allergies Coded Allergies: NKA (11/25/16) Physical Exam Vital Signs / I&Os Vital Signs Date Time Temp Pulse Resp B/P Pulse O2 O2 Flow FiO2 Ox Delivery Rate 11/26 0457 105 12 95 2.0 11/26 0334 104 10 98 3.0 11/26 0215 98.8 102 13 120/44 93 Nasal 3.0 Cannula 11/26 0147 100 12 96 3.0 11/26 0030 Nasal 3.0 Cannula 11/25 2332 105 24 93 3.0 11/25 2231 Nasal 3.0 Cannula 11/25 2231 98.2 75 10 121/47 92 Nasal 3.0 Cannula 11/25 2051 70 10 90 3.0 05 1958 70 11 92 3.0 / 1814 98.2 88 20 134/65 95 Nasal 3.0 Cannula 11/25 1739 3.0 11/25 1533 87 20 132/71 94 Nasal 4.0 Cannula 11/25 1432 99.0 11/25 1431 90 18 91 4.0 05/ 1420 93 20 131/64 92 Nasal 4.0 Cannula 11/25 1305 100.6 05/ 1230 100.9 05/ 1230 Mask 4.0 11/25 1226 87 20 93 4.0 05/ 1224 100.0 05/ 1210 87 20 122/67 94 OXYMASK 4.0 / 1155 85 20 127/67 95 OXYMASK 4.0 / 1140 80 20 131/64 95 OXYMASK 4.0 11/25 1126 100.2 81 18 130/62 91 OXYMASK 4.0 05/ 1110 99.9 81 20 125/61 95 OXYMASK 4.0 05/12 1105 83 18 136/65 94 OXYMASK 4.0 05/12 1100 81 18 131/66 96 OXYMASK 4.0 05/ 1055 81 18 118/64 96 OXYMASK 5.0 05/ 1050 82 18 127/60 95 OXYMASK 4.0 05/ 1045 83 18 133/68 95 OXYMASK 5.0 05/ 1040 84 16 125/67 93 OXYMASK 5.0 05/ 1035 84 18 139/55 92 OXYMASK 5.0 05/ 1030 84 17 130/59 89 Nasal 4.0 Cannula 05/ 1025 83 18 133/70 93 Mask 8.0 05/ 1020 99.7 85 17 143/70 96 Nasal 4.0 Cannula 05/ 1015 81 20 136/86 96 Mask 8.0 05/ 1010 90 20 144/72 89 Mask 8.0 05/ 1005 84 18 124/89 94 Mask 8.0 05/ 1000 84 18 140/71 94 Mask 8.0 05/ 0955 87 18 149/79 95 Mask 8.0 05/ 0950 90 19 152/77 94 Mask 8.0 05/ 0945 93 20 144/80 94 Mask 8.0 05/ 0943 98.8 93 21 93 Mask 8.0 05/ 0640 92 Nasal 5.0 Cannula / 0634 98.2 93 20 131/62 88 Nasal 2.0 Cannula I&O 11/26 0000 12 1600 11/25 0800 Intake Total 1136 10 1191 Output Total 600 50 250 Balance 536 -40 941 General Appearance Alert, Cooperative, No acute distress Lungs Bilateral expiratory wheezes-mild, scattered rhonchi Cardiovascular Regular rate and rhythm, Normal S1 and S2 Abdomen Normal bowel sounds, Soft, No tenderness Extremities No cyanosis, No clubbing Neurological Cranial nerves intact, No lateralizing signs Psych/Mental Status Mood normal LAB Results Laboratory Tests 11/26 11/26 11/25 0540 0500 1150 Chemistry Plasma Sodium Pending Plasma Potassium Pending Plasma Chloride Pending CO2 (Enzymatic) Pending BUN Pending Creatinine Pending Est GFR ( Amer) Pending Est GFR (Non-Af Amer) Pending Glucose Pending Plasma Calcium Pending Plasma Magnesium Pending Hematology WBC (4.5 - 11.5 K/uL) 8.9 RBC (4.50 - 5.90 M/uL) 3.33 Hgb (13.5 - 17.5 gm/dL) 10.1 Cancelled 11.3 Hct (41.0 - 53.0 %) 30.2 Cancelled 33.2 MCV (80 - 100 fL) 91 MCH (26 - 34 pg) 30 RDW (11.6 - 14.8 %) 14.1 Neut % (Auto) (50 - 75 %) 83.1 Lymph % (Auto) (25 - 40 %) 6.9 [place] % (Auto) (3 - 14 %) 9.4 Eos % (Auto) (0 - 4 %) 0.4 Baso % (Auto) (0 - 2 %) 0.2 Plt Count, EDTA (150 - 400 K/uL) 146 PUBS MCHC (31 - 37 g/dL) 34 Assessment and Plan Problem List 1. Left displaced femoral neck fracture Status Acute Onset Date 11/24/16 Plan -Follow per orthopedics -Postoperative course unremarkable this point 2. COPD (chronic obstructive pulmonary disease) Plan -Patient with persistent O2 requirement -Mild wheezing at this time -Continue Advair and DuoNeb -Monitor 3. Hypertension Plan -Blood pressure well controlled -BP this a.m. 103/50 mmHg -Low-salt diet -Monitor 4. Hypomagnesemia Status Acute Onset Date Unknown Plan -Patient with findings of hypomagnesemia -IV/oral supplementation -Slow-Mag one by mouth 3 times a day -Monitor 5. Anemia Status Acute Onset Date Unknown Plan -Patient with findings of mild anemia on presentation -H&H on presentation 13.1/39.6 -H&H today 10.1/30.2 -Check iron studies, B12, folate -Monitor 6. CKD (chronic kidney disease) stage 3, GFR 30-59 ml/min Plan -Patient with findings of chronic kidney disease -Monitor 7. CHF (congestive heart failure), NYHA class II Plan -Patient with history of CHF -Chest x-ray with findings of mild pulmonic congestion -Check BNP -I&O slightly mismatch with significant fluid retention at this time. -Diuretic therapy -Monitor Current status: Fair, stable Anticipated discharge date: Anticipated discharge in 2 days Anticipated discharge placement: halfway facility Patient care time: Time spent in chart review, patient interview, physical exam, CPOE, and care documentation: 25 minutes Visit to patient today: 1 Complexity of care: Moderate E&M Codes Rounding: Inpt-Moderate/20047
[2016-11-26 06:45] VITALS: BP 103/50
[2016-11-26 11:10] VITALS: BP 111/65
--- NOTE | 2016-11-26 11:10 | Progress Note ---
Subjective General C/O LBP wants x-rays. I informed him they were done yesterday and showed no fx but extensive arthritis. I also explaned surgery involved a nichelle and 3 scres instead of just screws and went well. He denies CP but has upper abdominal "bloating". Has had multiple BMs per RN incontinent. Also Urinary retention with 500 mL dark/concentrated urin with placement of vidales cath. SOB at baseline on NC O2. B feet with baseline decreased senation, no weakness though. Physical Exam Vital Signs / I&Os Vital Signs Date Time Temp Pulse Resp B/P Pulse O2 O2 Flow FiO2 Ox Delivery Rate 11/26 0844 2.0 11/26 0645 36.4 111 19 103/50 93 Nasal 2.0 Cannula 11/26 0457 105 12 95 2.0 11/26 0334 104 10 98 3.0 11/26 0215 37.1 102 13 120/44 93 Nasal 3.0 Cannula 11/26 0147 100 12 96 3.0 11/26 0030 Nasal 3.0 Cannula 11/25 2332 105 24 93 3.0 05/ 2231 Nasal 3.0 Cannula 11/25 2231 36.8 75 10 121/47 92 Nasal 3.0 Cannula 05/ 2051 70 10 90 3.0 05/ 1958 70 11 92 3.0 05/ 1814 36.8 88 20 134/65 95 Nasal 3.0 Cannula / 1739 3.0 05/ 1533 87 20 132/71 94 Nasal 4.0 Cannula / 1432 37.2 / 1431 90 18 91 4.0 05/ 1420 93 20 131/64 92 Nasal 4.0 Cannula 05/ 1305 38.1 05/12 1230 38.3 05/12 1230 Mask 4.0 05/ 1226 87 20 93 4.0 05/12 1224 37.8 05/12 1210 87 20 122/67 94 OXYMASK 4.0 05/12 1155 85 20 127/67 95 OXYMASK 4.0 05/12 1140 80 20 131/64 95 OXYMASK 4.0 05/12 1126 37.9 81 18 130/62 91 OXYMASK 4.0 05/12 1110 37.7 81 20 125/61 95 OXYMASK 4.0 05/12 1105 83 18 136/65 94 OXYMASK 4.0 11/25 1100 81 18 131/66 96 OXYMASK 4.0 I&O 11/26 0000 11/25 1600 11/25 0800 Intake Total 1136 10 1191 Output Total 600 50 250 Balance 536 -40 941 General Appearance Alert, Oriented X3, Cooperative, No acute distress Extremities No limb length or roational assymetry. SCDs & TEDs on. Calf not tender. Skin No Rashes, No Breakdown, No Significant Lesions, 3 operstive dressings on with minimal old appearing bloody drainage. Neurological Senation at baseline decreased to light touch in L foot. Fires ADF & APF. Psych/Mental Status Mental status normal, Mood normal LAB Results Laboratory Tests 11/26 11/26 11/25 0540 0500 1150 Chemistry Plasma Sodium (136 - 145 mmol/L) 143 Plasma Potassium (3.5 - 5.1 mmol/L) 3.8 Plasma Chloride (98 - 107 mmol/L) 107 CO2 (Enzymatic) (21 - 32 mmol/L) 24 BUN (7 - 18 mg/dL) 27 Creatinine (0.6 - 1.3 mg/dL) 1.4 Est GFR ( Amer) (mL/min) >60 Est GFR (Non-Af Amer) (mL/min) 51.32 Glucose (70 - 110 mg/dL) 141 Plasma Calcium (8.5 - 10.1 mg/dL) 7.5 Plasma Magnesium (1.8 - 2.4 mg/dL) 1.5 Hematology WBC (4.5 - 11.5 K/uL) 8.9 RBC (4.50 - 5.90 M/uL) 3.33 Hgb (13.5 - 17.5 gm/dL) 10.1 Cancelled 11.3 Hct (41.0 - 53.0 %) 30.2 Cancelled 33.2 MCV (80 - 100 fL) 91 MCH (26 - 34 pg) 30 RDW (11.6 - 14.8 %) 14.1 Neut % (Auto) (50 - 75 %) 83.1 Lymph % (Auto) (25 - 40 %) 6.9 [place] % (Auto) (3 - 14 %) 9.4 Eos % (Auto) (0 - 4 %) 0.4 Baso % (Auto) (0 - 2 %) 0.2 Plt Count, EDTA (150 - 400 K/uL) 146 PUBS MCHC (31 - 37 g/dL) 34 Imaging Post-op Pelvis and L hip x-ray she near anatomic reduction and intact InterTAN nail fixation of L basicervical fx. PROCEDURE: XR HIP 2VW W W/O AP PELVIS-LT INDICATION: s/p closed reduction TECHNIQUE: AP view of the pelvis and hips with lateral view of the left hip. COMPARISON: Hip and pelvis films 11/24/2016 FINDINGS: Left HIP: Left femoral neck fractures been fixed with two screws and an intramedullary nichelle. Anatomic alignment. 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 Anatomic alignment status post fixation left femoral neck fracture Dictated by: ANNE GOLD MD D: KATELYNN;11/25/167 <Electronically signed by ANNE GOLD MD in OV> 11/25/16 1527 PROCEDURE: XR LUMBAR SPINE 2 OR 3 VIEWS INDICATION: r/o fx p fall TECHNIQUE: Three views. COMPARISON: None. FINDINGS: Demineralization. No evidence of an acute process or fracture. IMPRESSION: 1. Negative lumbar spine. Dictated by: ANNE GOLD MD D: KATELYNN;11/25/16 1541 <Electronically signed by ANNE GOLD MD in OV> 11/25/16 1542 Assessment and Plan Problem List 1. Left displaced femoral neck fracture Status Acute Onset Date 11/24/16 Plan Doing well orthopaedically POD#1 s/p CR & Cephallomedullary fixation of L basicervical femur fx in pt with Paget's disease of bone. Start oral pain medications. Recheck Hct tomorrow to follow post-traumatic and post-operative blood loss anemia. Doesn't need transfusion at this time. OOB WBAT with walker and fall precautions with RN/Jenni and PT. Appreciate excellent medical management by Hospitalists for COPD, CHF, HTN, CRF, etc. [facility] anticipate DC Monday. Will change dressings before DC, RTC 2 weeks. TEDs, SCDs, ambulation and ECASA 325mg 2x/d x 6 weeks for DVT/PE proph. 2. COPD (chronic obstructive pulmonary disease) 3. Osteoarthritis 4. Hypertension 5. CHF (congestive heart failure), NYHA class II 6. Paget's disease of bone
[2016-11-26 14:34] VITALS: BP 116/66
[2016-11-26 18:34] VITALS: BP 118/47
[2016-11-26 23:14] VITALS: BP 144/69
[2016-11-27 02:25] VITALS: BP 127/67
[2016-11-27 06:28] VITALS: BP 128/73
--- NOTE | 2016-11-27 07:09 | Progress Note ---
Subjective General Note Date: November 27, 2016 Admission Date: November 24, 2016 Hospital Day: 4 PCP: Unknown Status: Inpatient, ACU Advanced Directive: FULL CODE Room: 204-A Brief History: The patient is a 86-year-old white male () with a significant past medical history of COPD, hypertension, osteoarthritis (100% [place] disability), congestive heart failure, who presented to [facility] emergency room on the day of admission secondary to complaints of left hip pain secondary to a fall that occurred 30-60 minutes prior to arrival to the [facility] ED. The ED evaluation was consistent with left femoral neck fracture. Patient was seen by orthopedic surgery who recommended general medicine admission to manage patient's history of heart failure, COPD and osteoarthritis. Secondary to the above, the patient was admitted by Reid Klein M.D. for further evaluation and treatment with orthopedic consultation by Dr. Dylan Mccoy. For other history present illness, past medical history, family history, social history, review of systems, and admission physical examination please see the patient's history and physical examination and ER visit note in the patient's medical record. Subjective: The patient states he is doing well today. Has persistent extremity pain. Mild shortness of breath. Denies chest pain. Patient noted to have SVT this a.m. Patient requests: None Medications and Allergies Medications Current Medications Sig/Ya Start time Last Medication Dose Route Stop Time Status Admin Magnesium Chloride 535 MG TID 11/26 1400 AC 11/27 PO 0634 Clarify Med Order See Dose ASDIRECTED 11/26 1245 AC Insts (1) PO Tramadol HCl See Dose Q6H PRN 11/26 1115 AC 11/26 Insts (2) PO 2027 Terazosin HCl 10 MG QHS 11/25 2100 AC 11/26 PO 2026 Losartan Potassium 100 MG DAILY 11/25 1533 AC 11/26 PO 1010 Aspirin 325 MG BID 11/25 0900 AC 11/26 PO 01/05 Pantoprazole Sodium 40 MG DAILY@0600 11/25 0600 AC 11/27 IV 0634 Fluticasone/ See Dose RTBID 11/24 2021 AC 11/26 Salmeterol Insts (3) IN 194 Albuterol/Ipratropium 3 ML Q6H PRN 11/24 2014 AC 11/26 IN 2352 Al Hydrox/Mg Hydrox/ 15 ML Q1H PRN 11/25 1999 AC Simethicone PO Atropine Sulfate 0.5 MG Q3MIN PRN 11/25 1999 AC IV Hydromorphone HCl 1 MG Q3H PRN 11/25 1999 AC 11/25 IV 2106 Lidocaine HCl See Dose ONCE PRN 11/25 1999 AC Insts (4) IV Magnesium Hydroxide 10 ML DAILY PRN 11/25 1999 AC PO Morphine Sulfate 2 MG Q3M PRN 11/25 1999 AC IV Naloxone HCl 0.4 MG PRN PRN 11/25 1999 AC IV Nitroglycerin 0.4 MG Q5M PRN 11/25 1999 AC SL Zolpidem Tartrate 5 MG QHS PRN 11/25 1999 AC PO Ondansetron HCl 4 MG Q4H PRN 11/24 1899 AC IV Dose Instructions: (1)Clarify Med Order: PT MEDS IN PHARMACY (2)Tramadol HCl: 50 - 100 MG (3)Fluticasone/Salmeterol: 1 CLICK (4)Lidocaine HCl: 1.5 MG/KG Allergies Coded Allergies: NKA (11/25/16) Physical Exam Vital Signs / I&Os Vital Signs Date Time Temp Pulse Resp B/P Pulse O2 O2 Flow FiO2 Ox Delivery Rate 11/27 0628 98.2 89 20 128/73 93 Nasal 2.0 Cannula 11/27 0225 97.5 88 20 127/67 95 Nasal 2.0 Cannula 11/27 0100 Nasal 2.0 Cannula 11/26 2353 2.0 11/26 2314 97.5 78 20 144/69 94 Nasal 2.0 Cannula 11/26 1945 2.0 11/26 1834 97.9 73 20 118/47 94 Nasal 2.0 Cannula 11/26 1434 97.3 71 18 116/66 94 Nasal Cannula 11/26 1110 97.9 110 18 111/65 93 Nasal 2.0 Cannula 11/26 1030 Nasal 2.0 Cannula 11/26 0844 2.0 I&O 11/27 0000 11/26 1600 11/26 0800 Intake Total 1555 720 821 Output Total 1000 0 50 Balance 555 720 771 General Appearance Alert, Cooperative, No acute distress Lungs Scattered rhonchi, minimal expiratory wheezes Cardiovascular Normal S1 and S2, irregular rhythm, tachycardia Abdomen Normal bowel sounds, Soft, No tenderness, No guarding Extremities No cyanosis, No clubbing Neurological Cranial nerves intact, No lateralizing signs Psych/Mental Status Mood normal LAB Results Laboratory Tests 11/27 11/27 0513 0513 Chemistry Plasma Sodium (136 - 145 mmol/L) 140 Plasma Potassium (3.5 - 5.1 mmol/L) 3.2 Plasma Chloride (98 - 107 mmol/L) 106 CO2 (Enzymatic) (21 - 32 mmol/L) 23 BUN (7 - 18 mg/dL) 32 Creatinine (0.6 - 1.3 mg/dL) 1.5 Est GFR ( Amer) (mL/min) 57.43 Est GFR (Non-Af Amer) (mL/min) 47.39 Glucose (70 - 110 mg/dL) 124 Plasma Calcium (8.5 - 10.1 mg/dL) 7.6 B-Natriuretic Peptide (5 - 100 pg/ml) 63.4 Hematology WBC (4.5 - 11.5 K/uL) 8.4 RBC (4.50 - 5.90 M/uL) 3.05 Hgb (13.5 - 17.5 gm/dL) 9.3 Hct (41.0 - 53.0 %) 27.6 MCV (80 - 100 fL) 91 MCH (26 - 34 pg) 30 RDW (11.6 - 14.8 %) 14.2 Neut % (Auto) (50 - 75 %) 79.3 Lymph % (Auto) (25 - 40 %) 8.7 [place] % (Auto) (3 - 14 %) 9.1 Eos % (Auto) (0 - 4 %) 2.8 Baso % (Auto) (0 - 2 %) 0.1 Plt Count, EDTA (150 - 400 K/uL) 135 PUBS MCHC (31 - 37 g/dL) 34 Assessment and Plan Problem List 1. Left displaced femoral neck fracture Status Acute Onset Date 11/24/16 Plan -Follow per orthopedics -Unremarkable postoperative course 2. COPD (chronic obstructive pulmonary disease) Plan -stable -Continue present therapy -O2 supplementation as necessary -O2 sats 95% on 3 L/m nasal cannula 3. Hypertension Plan -Blood pressure well controlled -BP this a.m. 128/73 mmHg -Low-salt diet -Continue present therapy 4. CHF (congestive heart failure), NYHA class II Plan -Stable -Monitor -BNP normal at 63.4. 5. Hypomagnesemia Status Acute Onset Date Unknown Plan -Patient with findings of hypomagnesemia -Slow-Mag one by mouth 3 times a day -Monitor 6. Anemia Status Acute Onset Date Unknown Plan -Patient with findings of mild anemia -Iron studies consistent with iron deficiency -Iron percent saturation 14% -Ferrous sulfate 325 mg by mouth twice a day -Monitor 7. CKD (chronic kidney disease) stage 3, GFR 30-59 ml/min Plan -Patient with findings of mild chronic disease stage III -Monitor -Renal function stable 8. SVT (supraventricular tachycardia) Status Acute Onset Date Unknown Plan -Patient manifested SVT today -Converted with IV beta bert -Coreg 6.25 mg by mouth twice a day -Telemetry -Monitor 9. Hypokalemia Status Acute Onset Date Unknown Plan -Patient with findings of mild hypokalemia -Potassium 3.3 -KCl 20 mEq by mouth daily. -Monitor Current status: Fair, unstable Anticipated discharge date: Anticipated discharge 1-2 days to residential facility Anticipated discharge placement: [facility] Patient care time: Time spent in chart review, patient interview, physical exam, CPOE, and care documentation: 35 minutes Visit to patient today: 2 Complexity of care: High E&M Codes Rounding: Inpt-High/[id number]
--- NOTE | 2016-11-27 08:19 | Progress Note ---
Subjective General OOB to chair, looks good. C/O L ear infection - told to discuss with hospitalist. SOB requested mask O2. No CP. Physical Exam Vital Signs / I&Os Vital Signs Date Time Temp Pulse Resp B/P Pulse O2 O2 Flow FiO2 Ox Delivery Rate 11/27 0628 36.8 89 20 128/73 93 Nasal 2.0 Cannula 11/27 0225 36.4 88 20 127/67 95 Nasal 2.0 Cannula 11/27 0100 Nasal 2.0 Cannula 11/26 2353 2.0 11/26 2314 36.4 78 20 144/69 94 Nasal 2.0 Cannula 11/26 1945 2.0 11/26 1834 36.6 73 20 118/47 94 Nasal 2.0 Cannula 11/26 1434 36.3 71 18 116/66 94 Nasal Cannula 11/26 1110 36.6 110 18 111/65 93 Nasal 2.0 Cannula 11/26 1030 Nasal 2.0 Cannula 11/26 0844 2.0 I&O 11/27 0000 11/26 1600 11/26 0800 Intake Total 1555 720 821 Output Total 1000 0 50 Balance 555 720 771 General Appearance Alert, Oriented X3, Cooperative, No acute distress Extremities No calf tenderness. TEDs on SCDs off since OOB. Skin No Rashes, No Breakdown, No Significant Lesions, Dressings on, CDI no increase in mild amt of old bloody drainage at 2 distal incisions. Neurological Sensation intact, No lateralizing signs, Fires B AD&PFs Psych/Mental Status Mental status normal, Mood normal LAB Results Laboratory Tests 11/27 11/27 0513 0513 Chemistry Plasma Sodium (136 - 145 mmol/L) 140 Plasma Potassium (3.5 - 5.1 mmol/L) 3.2 Plasma Chloride (98 - 107 mmol/L) 106 CO2 (Enzymatic) (21 - 32 mmol/L) 23 BUN (7 - 18 mg/dL) 32 Creatinine (0.6 - 1.3 mg/dL) 1.5 Est GFR ( Amer) (mL/min) 57.43 Est GFR (Non-Af Amer) (mL/min) 47.39 Glucose (70 - 110 mg/dL) 124 Plasma Calcium (8.5 - 10.1 mg/dL) 7.6 B-Natriuretic Peptide (5 - 100 pg/ml) 63.4 Hematology WBC (4.5 - 11.5 K/uL) 8.4 RBC (4.50 - 5.90 M/uL) 3.05 Hgb (13.5 - 17.5 gm/dL) 9.3 Hct (41.0 - 53.0 %) 27.6 MCV (80 - 100 fL) 91 MCH (26 - 34 pg) 30 RDW (11.6 - 14.8 %) 14.2 Neut % (Auto) (50 - 75 %) 79.3 Lymph % (Auto) (25 - 40 %) 8.7 [place] % (Auto) (3 - 14 %) 9.1 Eos % (Auto) (0 - 4 %) 2.8 Baso % (Auto) (0 - 2 %) 0.1 Plt Count, EDTA (150 - 400 K/uL) 135 PUBS MCHC (31 - 37 g/dL) 34 Assessment and Plan Problem List 1. Left displaced femoral neck fracture Status Acute Onset Date 11/24/16 Plan Doing well orthopaedically. Cont. current plan as outlined in prior notes. Dressing change tomorrow before DC to SNF hopefully. Cont TEDs, SCDsw and ECASA 325 2x/d x 6 weeks. RTC 2 weeks. WBAT w PT and RN/Jenni.
[2016-11-27 11:06] VITALS: BP 110/63
[2016-11-27 14:17] VITALS: BP 119/68
[2016-11-27 18:48] VITALS: BP 113/60
[2016-11-27 22:34] VITALS: BP 116/45
[2016-11-28] VITALS (9 sets, daily range): BP systolic 96–115; BP diastolic 56–67
--- NOTE | 2016-11-28 06:50 | Progress Note ---
Subjective General Note Date: November 28, 2016 Admission Date: November 24, 2016 Hospital Day: 5 PCP: Unknown Status: Inpatient, ACU Advanced Directive: FULL CODE Room: 204-A Brief History: The patient is a 86-year-old white male () with a significant past medical history of COPD, hypertension, osteoarthritis (100% [place] disability), congestive heart failure, who presented to [facility] emergency room on the day of admission secondary to complaints of left hip pain secondary to a fall that occurred 30-60 minutes prior to arrival to the [facility] ED. The ED evaluation was consistent with left femoral neck fracture. Patient was seen by orthopedic surgery who recommended general medicine admission to manage patient's history of heart failure, COPD and osteoarthritis. Secondary to the above, the patient was admitted by Reid Klein M.D. for further evaluation and treatment with orthopedic consultation by Dr. Dylan Mccoy. For other history present illness, past medical history, family history, social history, review of systems, and admission physical examination please see the patient's history and physical examination and ER visit note in the patient's medical record. Subjective: The patient states his pain is improved today. He remains short of breath. Slight improvement. Patient requests: None Medications and Allergies Medications Current Medications Sig/Ya Start time Last Medication Dose Route Stop Time Status Admin Ferrous Sulfate 325 MG BIDWC 11/27 1800 AC 11/27 PO 204 Carvedilol 6.25 MG BIDWC 11/27 1047 AC 11/27 PO 204 Potassium Chloride 20 MEQ DAILY 11/27 0900 AC 11/27 PO 0932 Magnesium Chloride 535 MG TID 11/26 1400 AC 11/28 PO 0632 Clarify Med Order See Dose ASDIRECTED 11/26 1245 AC Insts (1) PO Tramadol HCl See Dose Q6H PRN 11/26 1115 AC 11/28 Insts (2) PO 0314 Terazosin HCl 10 MG QHS 11/25 2100 AC 11/27 PO 2044 Losartan Potassium 100 MG DAILY 11/25 1533 AC 11/27 PO 0932 Aspirin 325 MG BID 11/25 0900 AC 11/27 PO 01/05 Pantoprazole Sodium 40 MG DAILY@0600 11/25 0600 AC 11/28 IV 0632 Fluticasone/ See Dose RTBID 11/24 2021 AC 11/27 Salmeterol Insts (3) IN 192 Albuterol/Ipratropium 3 ML Q6H PRN 11/24 2014 AC 11/26 IN 2352 Al Hydrox/Mg Hydrox/ 15 ML Q1H PRN 11/25 1999 AC Simethicone PO Atropine Sulfate 0.5 MG Q3MIN PRN 11/25 1999 AC IV Hydromorphone HCl 1 MG Q3H PRN 11/25 1999 AC 11/25 IV 2106 Lidocaine HCl See Dose ONCE PRN 11/25 1999 AC Insts (4) IV Magnesium Hydroxide 10 ML DAILY PRN 11/25 1999 AC PO Morphine Sulfate 2 MG Q3M PRN 11/25 1999 AC IV Naloxone HCl 0.4 MG PRN PRN 11/25 1999 AC IV Nitroglycerin 0.4 MG Q5M PRN 11/25 1999 AC SL Zolpidem Tartrate 5 MG QHS PRN 11/25 1999 AC PO Ondansetron HCl 4 MG Q4H PRN 11/24 1899 AC IV Dose Instructions: (1)Clarify Med Order: PT MEDS IN PHARMACY (2)Tramadol HCl: 50 - 100 MG (3)Fluticasone/Salmeterol: 1 CLICK (4)Lidocaine HCl: 1.5 MG/KG Allergies Coded Allergies: NKA (11/25/16) Physical Exam Vital Signs / I&Os Vital Signs Date Time Temp Pulse Resp B/P Pulse O2 O2 Flow FiO2 Ox Delivery Rate 11/28 0540 97.9 76 22 111/67 94 Nasal 3.0 Cannula 11/28 0230 98.6 77 20 115/64 95 Nasal 3.0 Cannula 11/28 0226 98.8 79 18 115/64 89 Nasal 3.0 Cannula 11/27 2234 98.1 74 16 116/45 94 Nasal 3.0 Cannula 11/27 2044 86 11/27 2030 Nasal 3.0 Cannula 11/27 1929 3.0 11/27 1848 97.2 88 20 113/60 94 Nasal 3.0 Cannula 11/27 1417 97.5 90 20 119/68 95 Nasal 3.0 Cannula 11/27 1145 97.5 11/27 1129 79 11/27 1106 86 20 110/63 94 Nasal 3.0 Cannula 11/27 1023 Nasal 3.0 Cannula 11/27 0945 3.0 I&O 11/28 0000 05/14 1600 11/27 0800 Intake Total 600 480 983 Output Total 300 775 Balance 300 480 208 General Appearance Alert, Oriented X3, Cooperative, No acute distress Lungs Decreased air movement bilaterally. Minimal expiratory wheezes improved since yesterday. No rales noted. Cardiovascular Regular rate and rhythm, Normal S1 and S2 Abdomen Normal bowel sounds, Soft Extremities No cyanosis, No clubbing, No edema Psych/Mental Status Mental status normal, Mood normal LAB Results Laboratory Tests 11/28 0506 Chemistry Plasma Sodium (136 - 145 mmol/L) 140 Plasma Potassium (3.5 - 5.1 mmol/L) 3.8 Plasma Chloride (98 - 107 mmol/L) 105 CO2 (Enzymatic) (21 - 32 mmol/L) 25 BUN (7 - 18 mg/dL) 37 Creatinine (0.6 - 1.3 mg/dL) 1.3 Est GFR ( Amer) (mL/min) >60 Est GFR (Non-Af Amer) (mL/min) 55.90 Glucose (70 - 110 mg/dL) 112 Plasma Calcium (8.5 - 10.1 mg/dL) 7.8 Hematology WBC (4.5 - 11.5 K/uL) 8.5 RBC (4.50 - 5.90 M/uL) 2.99 Hgb (13.5 - 17.5 gm/dL) 9.0 Hct (41.0 - 53.0 %) 27.4 MCV (80 - 100 fL) 92 MCH (26 - 34 pg) 30 RDW (11.6 - 14.8 %) 13.8 Neut % (Auto) (50 - 75 %) 72.8 Lymph % (Auto) (25 - 40 %) 9.9 [place] % (Auto) (3 - 14 %) 11.0 Eos % (Auto) (0 - 4 %) 6.2 Baso % (Auto) (0 - 2 %) 0.1 Plt Count, EDTA (150 - 400 K/uL) 165 PUBS MCHC (31 - 37 g/dL) 33 Assessment and Plan Problem List 1. Left displaced femoral neck fracture Status Acute Onset Date 11/24/16 Plan -Stable -Patient ready for discharge per orthopedics. -See orthopedics note 2. COPD (chronic obstructive pulmonary disease) Plan -Status improved -Persistent shortness of breath but overall improvement since admission -Continue present therapy -O2 sats 94-95 % 3 L/m nasal cannula 3. Hypertension Plan -Blood pressure well controlled -A.m. blood pressure 111/67 mmHg -Monitor -Low-salt diet -Continue present therapy 4. CHF (congestive heart failure), NYHA class II Plan -Patient with history of CHF on admission -No signs of CHF at this time -Low-salt diet -Continue present therapy 5. Hypomagnesemia Status Acute Onset Date Unknown Plan -Patient with findings of hypomagnesemia -Magnesium supplementation -Recheck in a.m. 6. Anemia Status Acute Onset Date Unknown Plan -Patient with findings of mild anemia -H&H 9.0/27.4 -Serum iron profile consistent with iron deficiency anemia, iron percent saturation 14% -Ferrous sulfate 325 mg by mouth twice a day -Monitor 7. CKD (chronic kidney disease) stage 3, GFR 30-59 ml/min Plan -Stable -Outpatient follow-up -BUN and creatinine 37/1.3 8. Hypokalemia Status Acute Onset Date Unknown Plan -Resolved -Potassium 3.8 9. SVT (supraventricular tachycardia) Status Acute Onset Date Unknown Plan -Patient with SVT postoperatively -Coreg 6.25 mg by mouth twice a day -Monitor -No recent SVT noted. Current status: Fair, improved Anticipated discharge date: Today if group home facility found for placement Anticipated discharge placement: detention facility Patient care time: Time spent in chart review, patient interview, physical exam, CPOE, and care documentation: 25 minutes Visit to patient today: 1 Complexity of care: Moderate E&M Codes Rounding: Inpt-Moderate/[id number]
--- NOTE | 2016-11-28 08:30 | Progress Note ---
Subjective General No c/o. I want to see my medical records. Eating mcgregor and eggs for breakfast. Physical Exam Vital Signs / I&Os Vital Signs Date Time Temp Pulse Resp B/P Pulse O2 O2 Flow FiO2 Ox Delivery Rate 11/28 0540 36.6 76 22 111/67 94 Nasal 3.0 Cannula 11/28 0230 37.0 77 20 115/64 95 Nasal 3.0 Cannula 11/28 0226 37.1 79 18 115/64 89 Nasal 3.0 Cannula 11/27 2234 36.7 74 16 116/45 94 Nasal 3.0 Cannula 11/27 2044 86 11/27 2030 Nasal 3.0 Cannula 11/27 1929 3.0 11/27 1848 36.2 88 20 113/60 94 Nasal 3.0 Cannula 11/27 1417 36.4 90 20 119/68 95 Nasal 3.0 Cannula 11/27 1145 36.4 11/27 1129 79 11/27 1106 86 20 110/63 94 Nasal 3.0 Cannula 11/27 1023 Nasal 3.0 Cannula 11/27 0945 3.0 I&O 11/28 0000 11/27 1600 11/27 0800 Intake Total 600 480 983 Output Total 300 775 Balance 300 480 208 General Appearance Alert, Oriented X3, Cooperative, No acute distress HEENT Normal exam, Atraumatic Extremities No calf tenderness Bilat. TEDs on SCDs of in chair. Walked 3 steps yesterday. Skin No Rashes, No Breakdown, No Significant Lesions, Dressings changed. Incisions CDIx3. Scant old dry blood on operative dressings. Neurological Able to fire AD&PFs Psych/Mental Status Mental status normal, Mood normal, Confused LAB Results Laboratory Tests 11/28 0506 Chemistry Plasma Sodium (136 - 145 mmol/L) 140 Plasma Potassium (3.5 - 5.1 mmol/L) 3.8 Plasma Chloride (98 - 107 mmol/L) 105 CO2 (Enzymatic) (21 - 32 mmol/L) 25 BUN (7 - 18 mg/dL) 37 Creatinine (0.6 - 1.3 mg/dL) 1.3 Est GFR ( Amer) (mL/min) >60 Est GFR (Non-Af Amer) (mL/min) 55.90 Glucose (70 - 110 mg/dL) 112 Plasma Calcium (8.5 - 10.1 mg/dL) 7.8 Hematology WBC (4.5 - 11.5 K/uL) 8.5 RBC (4.50 - 5.90 M/uL) 2.99 Hgb (13.5 - 17.5 gm/dL) 9.0 Hct (41.0 - 53.0 %) 27.4 MCV (80 - 100 fL) 92 MCH (26 - 34 pg) 30 RDW (11.6 - 14.8 %) 13.8 Neut % (Auto) (50 - 75 %) 72.8 Lymph % (Auto) (25 - 40 %) 9.9 [place] % (Auto) (3 - 14 %) 11.0 Eos % (Auto) (0 - 4 %) 6.2 Baso % (Auto) (0 - 2 %) 0.1 Plt Count, EDTA (150 - 400 K/uL) 165 PUBS MCHC (31 - 37 g/dL) 33 Assessment and Plan Problem List 1. Left displaced femoral neck fracture Status Acute Onset Date 11/24/16 Plan Doing well orthopaedically. Change dressings prn wet or loose. OK to shower/ sponge bath with dressings on do not immerse, blot dry. Cont. OOB chair/ ambulating WBAT with walker with RN/NA&PT. Cont TEDs/SCDs/ECASA 325mg 2x/day x 6 weeks. RTC weeks for wound and x-ray check. Anticipate DC to SNF when bed arranged. HCT essentially stable at 27+, doesn't need transfusion, agree with Fe repleatment.
[2016-11-29 03:18] VITALS: BP 109/61
[2016-11-29 05:56] VITALS: BP 121/70
--- NOTE | 2016-11-29 08:43 | Progress Note ---
Subjective General The patient is a 86-year-old white male () with a significant past medical history of COPD, hypertension, osteoarthritis (100% [place] disability), congestive heart failure, who presented to [facility] emergency room on the day of admission secondary to complaints of left hip pain secondary to a fall that occurred 30-60 minutes prior to arrival to the [facility] ED. The ED evaluation was consistent with left femoral neck fracture. Patient was consolable by orthopedic surgery who recommended general medicine admission to manage patient' s history of heart failure, COPD and osteoarthritis. Secondary to the above, the patient was admitted by Reid Klein M.D. for further evaluation and treatment. Still has dyspnea with cough and sputum, no chest pain, also c/o chronic abd pain, pain in left hip controlled, no fever or chills ROS: Cardiology: negative Chest pain, positive dyspnea Respiratory: positive for dyspnea and cough sputum GI: positive for Abdominal pain MkS: positive Hip pain Physical Exam Vital Signs / I&Os Vital Signs Date Time Temp Pulse Resp B/P Pulse O2 O2 Flow FiO2 Ox Delivery Rate 11/29 0809 70 11/29 0751 3.0 11/29 0556 98.1 70 18 121/70 98 Nasal 3.0 Cannula 11/29 0318 97.9 70 16 109/61 97 Nasal 3.0 Cannula 11/29 0137 3.0 11/28 2252 98.1 70 16 111/56 96 Nasal 3.0 Cannula 11/28 2133 73 102/61 11/28 1945 3.0 11/28 1828 98.1 78 18 114/59 95 Nasal Cannula 11/28 1812 78 05 1806 78 18 114/59 95 11/28 1435 97.9 78 22 103/64 95 Nasal 3.0 Cannula 11/28 1250 97.3 70 22 96/56 96 Nasal 3.0 Cannula 11/28 0929 3.0 11/28 0902 76 11/28 0856 3.0 I&O 11/29 0000 11/28 1600 11/28 0800 Intake Total 1110 400 Output Total 250 200 350 Balance -250 910 50 General Appearance Mild distress Lungs decreased air exchange all over lungs Neck Supple Cardiovascular Regular rate and rhythm, Normal S1 and S2 Abdomen Normal bowel sounds, Soft, No tenderness Extremities No edema Skin No Rashes Psych/Mental Status Mental status normal LAB Results Laboratory Tests 11/29 0550 Chemistry Plasma Sodium (136 - 145 mmol/L) 138 Plasma Potassium (3.5 - 5.1 mmol/L) 4.1 Plasma Chloride (98 - 107 mmol/L) 104 CO2 (Enzymatic) (21 - 32 mmol/L) 23 BUN (7 - 18 mg/dL) 42 Creatinine (0.6 - 1.3 mg/dL) 1.4 Est GFR ( Amer) (mL/min) >60 Est GFR (Non-Af Amer) (mL/min) 51.32 Glucose (70 - 110 mg/dL) 103 Plasma Calcium (8.5 - 10.1 mg/dL) 7.8 Hematology WBC (4.5 - 11.5 K/uL) 7.4 RBC (4.50 - 5.90 M/uL) 3.01 Hgb (13.5 - 17.5 gm/dL) 9.1 Hct (41.0 - 53.0 %) 27.5 MCV (80 - 100 fL) 91 MCH (26 - 34 pg) 30 RDW (11.6 - 14.8 %) 13.7 Neut % (Auto) (50 - 75 %) 68.4 Lymph % (Auto) (25 - 40 %) 11.2 Butts % (Auto) (3 - 14 %) 12.4 Eos % (Auto) (0 - 4 %) 7.7 Baso % (Auto) (0 - 2 %) 0.3 Plt Count, EDTA (150 - 400 K/uL) 167 PUBS MCHC (31 - 37 g/dL) 33 Assessment and Plan Problem List 1. Left displaced femoral neck fracture Status Acute Onset Date 11/24/16 Plan plan do discharge to [facility] as bed available 2. COPD (chronic obstructive pulmonary disease) Plan controlled by room for improvement, continue nebulizer 3. Hypertension Plan controlled continue current meds 4. Anemia Status Acute Onset Date Unknown Plan blood test reviewed stable
--- NOTE | 2016-11-29 08:43 | Progress Note ---
Subjective General The patient is a 86-year-old white male () with a significant past medical history of COPD, hypertension, osteoarthritis (100% [place] disability), congestive heart failure, who presented to [facility] emergency room on the day of admission secondary to complaints of left hip pain secondary to a fall that occurred 30-60 minutes prior to arrival to the [facility] ED. The ED evaluation was consistent with left femoral neck fracture. Patient was consolable by orthopedic surgery who recommended general medicine admission to manage patient' s history of heart failure, COPD and osteoarthritis. Secondary to the above, the patient was admitted by Reid Klein M.D. for further evaluation and treatment. Still has dyspnea with cough and sputum, no chest pain, also c/o chronic abd pain, pain in left hip controlled, no fever or chills ROS: Cardiology: negative Chest pain, positive dyspnea Respiratory: positive for dyspnea and cough sputum GI: positive for Abdominal pain MkS: positive Hip pain Physical Exam Vital Signs / I&Os Vital Signs Date Time Temp Pulse Resp B/P Pulse O2 O2 Flow FiO2 Ox Delivery Rate 11/29 0809 70 11/29 0751 3.0 11/29 0556 98.1 70 18 121/70 98 Nasal 3.0 Cannula 11/29 0318 97.9 70 16 109/61 97 Nasal 3.0 Cannula 11/29 0137 3.0 11/28 2252 98.1 70 16 111/56 96 Nasal 3.0 Cannula 11/28 2133 73 102/61 11/28 1945 3.0 11/28 1828 98.1 78 18 114/59 95 Nasal Cannula 11/28 1812 78 05 1806 78 18 114/59 95 11/28 1435 97.9 78 22 103/64 95 Nasal 3.0 Cannula 11/28 1250 97.3 70 22 96/56 96 Nasal 3.0 Cannula 11/28 0929 3.0 11/28 0902 76 11/28 0856 3.0 I&O 11/29 0000 11/28 1600 11/28 0800 Intake Total 1110 400 Output Total 250 200 350 Balance -250 910 50 General Appearance Mild distress Lungs decreased air exchange all over lungs Neck Supple Cardiovascular Regular rate and rhythm, Normal S1 and S2 Abdomen Normal bowel sounds, Soft, No tenderness Extremities No edema Skin No Rashes Psych/Mental Status Mental status normal LAB Results Laboratory Tests 11/29 0550 Chemistry Plasma Sodium (136 - 145 mmol/L) 138 Plasma Potassium (3.5 - 5.1 mmol/L) 4.1 Plasma Chloride (98 - 107 mmol/L) 104 CO2 (Enzymatic) (21 - 32 mmol/L) 23 BUN (7 - 18 mg/dL) 42 Creatinine (0.6 - 1.3 mg/dL) 1.4 Est GFR ( Amer) (mL/min) >60 Est GFR (Non-Af Amer) (mL/min) 51.32 Glucose (70 - 110 mg/dL) 103 Plasma Calcium (8.5 - 10.1 mg/dL) 7.8 Hematology WBC (4.5 - 11.5 K/uL) 7.4 RBC (4.50 - 5.90 M/uL) 3.01 Hgb (13.5 - 17.5 gm/dL) 9.1 Hct (41.0 - 53.0 %) 27.5 MCV (80 - 100 fL) 91 MCH (26 - 34 pg) 30 RDW (11.6 - 14.8 %) 13.7 Neut % (Auto) (50 - 75 %) 68.4 Lymph % (Auto) (25 - 40 %) 11.2 [place] % (Auto) (3 - 14 %) 12.4 Eos % (Auto) (0 - 4 %) 7.7 Baso % (Auto) (0 - 2 %) 0.3 Plt Count, EDTA (150 - 400 K/uL) 167 PUBS MCHC (31 - 37 g/dL) 33 Assessment and Plan Problem List 1. Left displaced femoral neck fracture Status Acute Onset Date 11/24/16 Plan plan do discharge to [facility] as bed available 2. COPD (chronic obstructive pulmonary disease) Plan controlled by room for improvement, continue nebulizer 3. Hypertension Plan controlled continue current meds 4. Anemia Status Acute Onset Date Unknown Plan blood test reviewed stable
[2016-11-29 10:52] VITALS: BP 122/61
[2016-11-29 14:55] VITALS: BP 121/59
--- NOTE | 2016-11-29 16:54 | Progress Note ---
Subjective General Sore today "back, L hip, abdomen". Up with PT but did not go as "good as yesterday." Physical Exam Vital Signs / I&Os Vital Signs Date Time Temp Pulse Resp B/P Pulse O2 O2 Flow FiO2 Ox Delivery Rate 11/29 1558 3.0 11/29 1518 3.0 11/29 1455 36.5 77 18 121/59 93 Nasal 3.0 Cannula 11/29 1052 36.9 78 18 122/61 98 Nasal 3.0 Cannula 11/29 0910 3.0 11/29 0809 70 11/29 0751 3.0 11/29 0556 36.7 70 18 121/70 98 Nasal 3.0 Cannula 11/29 0318 36.6 70 16 109/61 97 Nasal 3.0 Cannula 11/29 0137 3.0 11/28 2252 36.7 70 16 111/56 96 Nasal 3.0 Cannula 11/28 2133 73 102/61 11/28 1945 3.0 11/28 1828 36.7 78 18 114/59 95 Nasal Cannula 11/28 1812 78 11/28 1806 78 18 114/59 95 I&O 11/29 0000 11/28 1600 11/28 0800 Intake Total 1110 400 Output Total 250 200 350 Balance -250 910 50 General Appearance Alert, Oriented X3, Cooperative, No acute distress Extremities LE lengths equal. Skin Small amount of bloody drainage at distal incisions/dressings. Psych/Mental Status Mental status normal, Mood normal, Confused LAB Results Laboratory Tests 11/29 0550 Chemistry Plasma Sodium (136 - 145 mmol/L) 138 Plasma Potassium (3.5 - 5.1 mmol/L) 4.1 Plasma Chloride (98 - 107 mmol/L) 104 CO2 (Enzymatic) (21 - 32 mmol/L) 23 BUN (7 - 18 mg/dL) 42 Creatinine (0.6 - 1.3 mg/dL) 1.4 Est GFR ( Amer) (mL/min) >60 Est GFR (Non-Af Amer) (mL/min) 51.32 Glucose (70 - 110 mg/dL) 103 Plasma Calcium (8.5 - 10.1 mg/dL) 7.8 Hematology WBC (4.5 - 11.5 K/uL) 7.4 RBC (4.50 - 5.90 M/uL) 3.01 Hgb (13.5 - 17.5 gm/dL) 9.1 Hct (41.0 - 53.0 %) 27.5 MCV (80 - 100 fL) 91 MCH (26 - 34 pg) 30 RDW (11.6 - 14.8 %) 13.7 Neut % (Auto) (50 - 75 %) 68.4 Lymph % (Auto) (25 - 40 %) 11.2 [facility] % (Auto) (3 - 14 %) 12.4 Eos % (Auto) (0 - 4 %) 7.7 Baso % (Auto) (0 - 2 %) 0.3 Plt Count, EDTA (150 - 400 K/uL) 167 PUBS MCHC (31 - 37 g/dL) 33 Assessment and Plan Problem List 1. Left displaced femoral neck fracture Status Acute Onset Date 11/24/16 Plan Doing well orthopaedically. Anticipate DC to [facility] tomorrow. RN to change dressings today and prn. Plan o/w unchanged from yesterday's note: Cont TEDs SCDs ECASA 325mg 2x/d x 6 wks. RTC 2 weeks for wound check and x-rays. Cont PT WBAT with walker and fall precautions. OK to wash with waterproof dressing on but not immerse. Change dressings prn wet/loose or drainage. Call for any signs/sx infection, increased pain, leg length/rotational assymetry, CP/ increase SOB etc. Will sign off for now. Please feel free to call with any orthopaedic questions or concerns.
[2016-11-29 18:46] VITALS: BP 128/68
[2016-11-29 23:27] VITALS: BP 119/72
[2016-11-30 02:38] VITALS: BP 108/64
--- NOTE | 2016-11-30 08:03 | Progress Note ---
Subjective General Breathing improved dramatically, no cough still has sputum, no cp, no fever occasionall chills, no nause vomiting but chronic abd. pain Physical Exam Vital Signs / I&Os Vital Signs Date Time Temp Pulse Resp B/P Pulse O2 O2 Flow FiO2 Ox Delivery Rate 11/30 0738 3.0 11/30 0238 98.6 67 17 108/64 94 Nasal 3.0 Cannula 11/30 0027 Nasal 3.0 Cannula 11/29 2327 98.2 78 18 119/72 92 Nasal 3.0 Cannula 11/29 2321 3.0 11/29 2050 3.0 11/29 2010 3.0 11/29 1846 97.5 80 20 128/68 90 Nasal 3.0 Cannula 11/29 1746 77 11/29 1558 3.0 11/29 1518 3.0 11/29 1455 97.7 77 18 121/59 93 Nasal 3.0 Cannula 11/29 1052 98.4 78 18 122/61 98 Nasal 3.0 Cannula 11/29 0910 3.0 11/29 0809 70 I&O 11/30 0000 11/29 1600 11/29 0800 Intake Total 880 125 Output Total 333 1482 770 Balance -333 -602 -645 General Appearance No acute distress Lungs occasional rhonchies, decreased air exchange Neck Supple Cardiovascular Regular rate and rhythm, Normal S1 and S2, No murmurs, gallops, rubs Abdomen Normal bowel sounds (mildly tender), Soft Extremities No edema Skin No Rashes Psych/Mental Status Mental status normal Other left hip painful Assessment and Plan Problem List 1. Left displaced femoral neck fracture Status Acute Onset Date 11/24/16 Plan fixed pt is ready to go to [facility] for medicine point of view 2. COPD (chronic obstructive pulmonary disease) Plan much better ready to be discharged if ok with ortho 3. Hypertension Plan controlled continue current meds 4. Anemia Status Acute Onset Date Unknown Plan stable, monitoring
[2016-11-30] MEDS ORDERED: OXAYDO7.5 MG PO (09:04)
--- NOTE | 2016-11-30 09:33 | DISCHARGE SUMMARY ---
ADMIT DATE: 11/24/2016 DISCHARGE DATE: 11/30/2016 DISCHARGE DIAGNOSES: 1. Left displaced femoral neck fracture, status post repair 2. Hypertension 3. Chronic obstructive pulmonary disease 4. Congestive heart failure 5. Padget disease of the bone BRIEF HISTORY: This is an 86-year-old white male who presented to emergency on 11/24/2016. The patient suffered a fall, 4 feet, on the left buttock, and experienced extreme pain in the lower back and left hip area. Was able to drag himself and call for help. The medics arrived, and the patient was transferred to emergency room and was found to have a left hip fracture. HOSPITAL COURSE: Orthopedic consultation was obtained. The patient went to a left hip fracture procedure. The patient also was short of breath during the hospital course and was put on oxygen and nebulizer treatment and Advair. The patient gradually improved during the hospital course. Today, he is doing much better. His breathing is stable and almost back to the baseline. The patient is comfortable. Complains of pain only in the hip area, which was managed by Dilaudid and will be switched to oral. The patient has already signed up by orthopedic to be discharged to the SNF for rehabilitation. DISCHARGE INSTRUCTIONS/MEDICATIONS: Disposition: The patient will be discharged home, to follow up with his primary care physician within 1 week and also follow up with the orthopedist as outlined by their instruction. Discharge medications: Symbicort 1 inhaled every 12 hours. Spiriva hand-held inhaler once a day. Albuterol 1-2 puffs 4 times a day. Lasix 20 mg daily. Potassium supplement 20 mEq daily. Oxycodone we will bump up to 7.5; 3.25 Percocet 4 times a day. Carvedilol 3.125 mg twice a day.
== END 2016-11-30 10:45 | DRG 481 ==
LOC: ED SRH 17:55 → TRANS SRH 19:05 → ACUTE2 SRH 20:20
PROVIDERS: Orthopaedic Surgery; ADMIT Pediatrics
PROC: 0QS706Z Reposition Left Upper Femur with Intramedullary Internal Fixation Device, Open Approach (ICD-10-PCS; principal; 2016-11-25 07:00)
DX: S72.012A Unspecified intracapsular fracture of left femur, initial encounter for closed fracture (principal); S72.042A Displaced fracture of base of neck of left femur, initial encounter for closed fracture; W10.8XXA Fall (on) (from) other stairs and steps, initial encounter; M88.88 Osteitis deformans of other bones; I13.0 Hypertensive heart and chronic kidney disease with heart failure and stage 1 through stage 4 chronic kidney disease, or unspecified chronic kidney disease; I50.9 Heart failure, unspecified; N18.3 Chronic kidney disease, stage 3 (moderate); Y93.01 Activity, walking, marching and hiking; Y92.008 Other place in unspecified non-institutional (private) residence as the place of occurrence of the external cause; Y99.8 Other external cause status; E87.6 Hypokalemia; E83.42 Hypomagnesemia; J44.9 Chronic obstructive pulmonary disease, unspecified; Z99.81 Dependence on supplemental oxygen; M19.90 Unspecified osteoarthritis, unspecified site; D50.9 Iron deficiency anemia, unspecified

== ENCOUNTER 2016-12-30 18:01 | Emergency (ER) | payer OTHER ==
[~2016-12-30 18:01] MED LIST: ALBUTEROL HFA60 DOSE IN; ASPIRIN81 M1 PO; CHLORTHALIDONE25 MG PO; COZAAR100 MG PO; OMEPRAZOLE40 MG PO; OXAYDO5 MG PO; OXAYDO7.5 MG PO; PERCOCET1 TA1 PO; POLYETHYLENE3350 MG PO; PRILOSEC20 MG PO; SYMBICORT1 AE1 IN; TERAZOSIN HCL1 MG PO
--- NOTE | 2016-12-30 21:54 | DIAGNOSTIC IMAGING REPORT ---
PROCEDURE: XR CHEST 1 VIEW INDICATION: SHORTNESS OF BREATH TECHNIQUE: Portable AP view (21 3 hours). COMPARISON: Compared to chest x-ray on 11/24/2016. FINDINGS: There is moderate to severe bibasilar volume loss/atelectasis/or scarring (findings accentuated due to suboptimal inspiration). Heart is most likely of normal size (limited evaluation due to suboptimal inspiration). Mediastinum is normal. There are multiple old left rib fractures. Mediastinum is normal. Thorax is normal. IMPRESSION: 1. Mild worsening in moderate to severe bibasilar chronic volume loss/atelectasis/or scarring.
--- NOTE | 2016-12-30 23:10 | ED CLINICAL REPORT ---
Clinical Report - Physicians/Mid Levels [facility] [address] [place] [address] 12/30/2016 18:02 Patient: PHILLIP COSTA Time Seen: 18:45; initial patient contact. Arrived- By private vehicle. Historian- patient. CPT: ER phys charges level 4 (#[id number]). HISTORY OF PRESENT ILLNESS Chief Complaint: Called and sent to ER by home nursing staff that felt his WBC was too high. ABNORMAL LAB (WBC elevated). This started today and is still present. At its maximum, severity described as mild. Modifying factors. Not worsened by anything. Not relieved by anything. No headache or fatigue. (LE edema). Similar symptoms previously: None. Recent medical care: Not recently seen/assessed. REVIEW OF SYSTEMS No fever, sore throat, sinus drainage, cough or abdominal pain. No nausea, vomiting, chills, skin rash or calf pain. No blackouts. He has had difficulty breathing (baseline). No difficulty with ambulation. He has had pedal edema. All systems otherwise negative, except as recorded above. PAST HISTORY Hernia. Back Pain. COPD - Chronic Obstructive Pulmonary Disease. On 3 Liters 02 at home. Fall. Hypertension. Medications: TERAZOSIN HCl Oral (Capsule 10 mg) 1 capsule. Symbacort. Amoxicillin Oral (Capsule 250 mg) 1 capsule. Losartan Potassium Oral (Tablet 100 mg), daily. Calcium 500 Oral. Albuterol Sulfate Inhalation. Omeprazole Oral 10 mg, as needed. Furosemide Oral. Chlorthalidone Oral. Aspirin Childrens Oral. Percocet Oral 5/325 mg, 3x a day as needed (pt reports sometimes he takes this 1-2 times per day. ). Allergies: No Known Drug Allergy. SOCIAL HISTORY No alcohol use. ADDITIONAL NOTES The nursing notes have been reviewed. PHYSICAL EXAM Vital Signs: 12/30/2016 18:28 BP: 89/69. HR: 76. RR: 24. O2 saturation: 97%. Temp: 98.0 F. Appearance: Alert. No acute distress. Eyes: Eyes normal inspection. ENT: Pharynx normal. Neck: Normal inspection. CVS: Normal heart rate and rhythm. Heart sounds normal. Pulses normal. Respiratory: No respiratory distress. Decreased air movement. Chest nontender. Abdomen: Soft and nontender. Back: Normal inspection. Skin: Skin warm. Normal skin color. No rash. Extremities: Bilateral mild 1+ edema of the lower extremities. Neuro: Oriented X 3. No motor deficit. No sensory deficit. LABS, X-RAYS, AND EKG Lower Extremity Sonography: Negative study. Laboratory Tests: CBC w Diff: (CHANCE: 12/30/2016 20:11) ( [facility] 12/30/2016 20:28) Final results Test Result Flag Units (Reference) WHITE BLOOD COUNT 14.9 H K/uL (4.5-11.5) RED BLOOD COUNT 3.66 L M/uL (4.50-5.90) HEMOGLOBIN 11.2 L gm/dL (13.5-17.5) HEMATOCRIT 33.8 L % (41.0-53.0) MEAN CELL VOLUME 92 fL (80-100) MEAN CORPUSCULAR HGB 31 pg (26-34) MEAN CORPUSCULAR HGB CONC 33 g/dL (31-37) RED CELL DISTRIBUTION WIDTH 14.0 % (11.6-14.8) PLATELET COUNT 313 K/uL (150-400) NEUTROPHIL % 85.5 H % (50-75) LYMPH % 6.6 L % (25-40) MONO % 5.9 % (3-14) EOSINOPHIL % 1.5 % (0-4) BASOPHIL % 0.5 % (0-2) [id number]: (CHANCE: 12/30/2016 20:11) ( [facility] 12/30/2016 20:36) Final results Test Result Flag Units (Reference) D-DIMER QUANTITATIVE 2.22 H ug/mLFEU (0.27-0.52) The primary value of this quantitative assay relates toits negative predictive value (i.e. exclusion) of pulmonaryembolism/deep vein thrombosis/DIC.Elevated levels of d-dimer may also occur with:, age, cancer, inflammation, liver disease,post-op, infection, hematoma, coronary disease, peripheralarteriopathy, bleeding disorders and thrombolytic treatment.Results should be correlated with other clinical andradiological data.Testing Methodology: Latex Immunoassay BNP: (CHANCE: 12/30/2016 20:11) ( MsgRcvd 12/30/2016 20:51) Final results Test Result Flag Units (Reference) B-TYPE NATRIURETIC PEPTIDE 52.1 pg/ml (5-100) CMP: (CHANCE: 12/30/2016 20:11) ( MsgRcvd 12/30/2016 20:39) Final results Test Result Flag Units (Reference) GLUCOSE 124 H mg/dL (70-110) BUN 42 H mg/dL (7-18) CREATININE 1.8 H mg/dL (0.6-1.3) Estimated GFR 38.40 mL/min Estimated GFR- 46.54 mL/min Note: Persistent reduction over 3 months in eGFR<60 mL/min/1.73 m2 defines CKD. Patients with eGFR values>=60 mL/min/1.73 m2 may also have CKD if evidence ofpersistent proteinuria. Additional information may be foundat www.kidney.org. SODIUM 138 mmol/L (136-145) POTASSIUM 3.3 L mmol/L (3.5-5.1) CHLORIDE 101 mmol/L (98-107) CARBON DIOXIDE 27 mmol/L (21-32) CALCIUM 8.9 mg/dL (8.5-10.1) TOTAL PROTEIN 7.1 g/dL (6.4-8.2) ALBUMIN 3.2 L g/dL (3.3-5.0) BILIRUBIN, TOTAL 0.5 mg/dL (0.0-1.0) ALKALINE PHOSPHATASE 83 U/L (46-116) AST (SGOT) 20 U/L (15-37) ALT (SGPT) 21 U/L (12-78) . PROGRESS AND PROCEDURES Course of Care: Pt has been on chlorthalidone for years. Lasix was added 2 days ago for leg edema along with stopping the norvasc. There are 2 Doctors that are prescribing 2 different diuretics and the family is not sure if both Doctors know all the medications on the list. His legs are much better now as of today, but his potassium is low and he has pre-renal azotemia. Discussed with Daughters and we will hold the lasix unless the legs balloon again and then make sure his follow up Doctors sees all the medications. He has F/U scheduled for 1 week. Pt does not appear to have an infection associated with the elevated WBC. Pt has had doppler of the legs showing no DVT. His D-dimer is elevated and CT chest discussed but he does not want further testing and wants to go home. Discussed risks. He dose not have any CP or respiratory complaints. Patient/family counseled. Disposition: Discharged. Condition: stable and improved. CLINICAL IMPRESSION Bilateral leg edema : Improved Pre-renal azotemia due to 2 diuretics. Hypokalemia due to lasix. Elevated WBC. INSTRUCTIONS Elevate affected areas above chest level until better (especially at night.). No strenuous activity. Rest. (Stop lasix unless legs swell badly again.). Warnings: Further evaluation is necessary. GENERAL WARNINGS: Return or contact your physician immediately if your condition worsens or changes unexpectedly, if not improving as expected, or if other problems arise. Prescription Medications: Potassium 10 meq po q day for 3 days. Follow-up: Follow up with your doctor in one week as scheduled. Understanding of the discharge instructions verbalized by patient and family. (Electronically signed by Aren Post MD 01/01/2017 7:16)
--- NOTE | 2016-12-30 23:10 | ED ORDER SUMMARY ---
..... Patient: PHILLIP COSTA OrderSheet [facility] VisitID: [id number] [place] [address] 86y, M Registration Date/Time: 12/30/2016 ORDER SHEET Weight: 88.9 kg Allergies: No Known Drug Allergy GENERAL ORDERS: CBC w Diff Urgent (19:57 12/30/2016 Amber Miller) (Ack 20:10 Yahaira) (Collected 20:13 RMarsden R.N.) (20:50 RMarsden R.N.) CMP Urgent (19:57 12/30/2016 Amber Miller) (Ack 20:10 Yahaira) (Collected 20:13 RMarsden R.N.) (20:50 RMarsden R.N.) D-Dimer Urgent (19:57 12/30/2016 Amber Miller) (Ack 20:10 Yahaira) (Collected 20:13 RMarsden R.N.) (20:50 RMarsden R.N.) BNP Urgent (19:57 12/30/2016 Amber Miller) (Ack 20:10 Yahaira) (Collected 20:13 RMarsden R.N.) (20:50 RMarsden R.N.) US Venous Bilat (Pos D dimer) Urgent (21:03 12/30/2016 Amber Miller) (Ack 21:10 Yahaira) (22:44 RMarsden R.N.) Chest 1V Urgent (21:04 12/30/2016 Amber Miller) (Ack 21:10 Yahaira) (22:18 RMarsden R.N.) MEDICATION ORDERS: IV FLUIDS: IV Saline Lock (19:57 12/30/2016 Amber Miller) (Ack 20:05 RMarsden R.N.) (20:14 RMarsden R.N.) ORDER SHEET NOTES: [Electronically signed by Cherelle Randle R.N. (04:47 12/31/2016)] [Electronically signed by Aren Post MD (07:16 01/01/2017)] [Electronically locked/signed by Cherelle Randle R.N. (04:47 12/31/2016)]
--- NOTE | 2016-12-30 23:10 | ED NURSING NOTES ---
Clinical Report - Nurses [facility] [address] [place] [address] 12/30/2016 18:02 Patient: PHILLIP COSTA TRIAGE Triage time 1820. Chief Complaint: RIGHT LOWER EXTREMITY PAIN, SWELLING and REDNESS. Alert. --18:38 Bell Collins 18:28 12/30/16. BP: 89/69. HR: 76. RR: 24. O2 saturation: 97%. Temp: 98.0 F. Pain level now 01/23. --18:38 Bell Collins. Weight: 88.9 kg. Height/Length: 72 inches. BMI: 26.6. --18:27 Bell Collins. Medications Aspirin Childrens Oral. Percocet Oral 5/325 mg, 3x a day as needed (pt reports sometimes he takes this 1-2 times per day. ). --18:36 Bell Collins Chlorthalidone Oral. --23:16 Cherelle Randle R.N. Furosemide Oral. --23:16 Cherelle Randle R.N. Omeprazole Oral 10 mg, as needed. --23:16 Cherelle Randle R.N. Albuterol Sulfate Inhalation. --23:16 Cherelle Randle R.N. Calcium 500 Oral. --23:17 Cherelle Randle R.N. Losartan Potassium Oral (Tablet 100 mg), daily. --23:17 Cherelle Randle R.N. Amoxicillin Oral (Capsule 250 mg) 1 capsule. --23:18 Cherelle Randle R.N. Symbacort. --23:18 Cherelle Randle R.N. TERAZOSIN HCl Oral (Capsule 10 mg) 1 capsule. --23:19 Cherelle Randle R.N. Allergies No Known Drug Allergy. --18:36 Bell Collins. History Arrived by private vehicle. Historian: patient and family. Accompanied by family. Injury occurred. This occurred at an unknown time. Occurred at home. ( Pt with wound to LLE, home nurse cleansed and found bilat leg edema, that does improve with elevation, francisco blood, here d/t + blood cultures). SOCIAL HX: Smoker- current status unknown. Patient refuses to answer tobacco use questions. --18:38 Bell Collins. PROBLEMS: Hernia. Back Pain. COPD - Chronic Obstructive Pulmonary Disease. Fall. Hypertension. --18:36 Bell Collins. Interventions ID band on patient. To treatment room. --18:38 Bell Collins. PHYSICAL ASSESSMENT To room via wheelchair. GENERAL / NEURO / PSYCH: Oriented X 4. Alert. He has no smile response and is hostile. EXTREMITIES: Limited ROM present. Left leg: tenderness, swelling and erythema. SKIN: Skin is warm and dry. --18:39 Bell Collins. NURSING PROGRESS NOTES Reassurance given. Call light placed in reach. Bed placed in lowest position. Brakes of bed on. Patient ready for evaluation- chart flagged. --18:39 Bell Collins ( Pt talking hostile to his daughter who is here with him, pt to RN sts he is only here for his shot and nothing more, pt moved self from home w/c to stretcher, RN explained to pt that we need to check him in and that includes VS, pt angrily reluctant to remove coat, will not gown, Pt noted to have hypotension, pt sts his edema is better after putting his legs up, Pt voice is aggressive the entire interaction with staff, RN explained that there was concern with pt having + BC, edema, and hypotension and the pt now having a systemic infection, pt again sts he will not be admitted, pt sts he has dogs that are children to him, daughter sts she will care for dogs, pt again sts he will not stay and that he has a home nurse that can give him IVF and IV antibiotics, daughter is upset about his behavior, she sts this is a good day for him and is usually worse to deal with, daughter informed that pt was a consenting adult, alert and oriented, and in right mind, he had the ability to refuse care, pt encouraged to take one step at a time and could go AMA if he wanted). --18:47 Bell Collins Care transferred and report received (from LISA Luu). --19:23 Cherelle Randle R.N. 20:14 12/30/2016 Site #1 started via IV in the right antecubital space with an 20g angiocath; one attempt. Blood drawn: rainbow set. Labeled in the presence of the patient and sent to the lab. Saline lock flushed with 5 mL saline. --20:14 Cherelle Randle R.N. late entry - 20:15. Patient and family informed about reason for wait and about plan of care. --21:19 Cherelle Randle R.N. 21:19 12/30/16. Family informed about reason for wait and about plan of care. ( Patient wheeled himself to restroom.). --21:19 Cherelle Randle R.N. ( Ultrasound at bedside, patient connected to hospital Oxygen.). --21:24 Cassandra Mcmauns Patient informed about reason for wait and about plan of care. --21:55 Cherelle Randle R.N. ( US in room). --22:40 Cherelle Randle R.N. DISPOSITION / DISCHARGE 23:26 12/30/16. No learning barriers present. Discharge instructions provided and reviewed with the patient and family. Reviewed warnings. Reviewed medication(s). Treatments reviewed. Reviewed referrals. Activity restrictions reviewed. Patient and family verbalized understanding. Written instructions provided in [place]an. The patient was discharged home and accompanied by family. He left the Emergency Department ambulatory and via private vehicle. Family member driving. --23:26 Cherelle Randle R.N. 23:25 12/30/16. BP: 113/68 taken on the right arm, while sitting. HR: 68. RR: 16. O2 saturation: 92%. Temp: deferred. Pain level now: 12/24. --23:26 Cherelle Randle R.N. Departure time: :. --23:26 Cherelle Randle R.N. Locked/Released at 12/31/2016 4:47 by Cherelle Randle R.N.
--- NOTE | 2016-12-30 23:10 | ED ORDER SUMMARY ---
..... Patient: PHILLIP COSTA OrderSheet [facility] VisitID: [id number] [place] [address] 86y, M Registration Date/Time: 12/30/2016 ORDER SHEET Weight: 88.9 kg Allergies: No Known Drug Allergy GENERAL ORDERS: CBC w Diff Urgent (19:57 12/30/2016 Amber Miller) (Ack 20:10 Yahaira) (Collected 20:13 RMarsden R.N.) (20:50 RMarsden R.N.) CMP Urgent (19:57 12/30/2016 Amber Miller) (Ack 20:10 Yahaira) (Collected 20:13 RMarsden R.N.) (20:50 RMarsden R.N.) D-Dimer Urgent (19:57 12/30/2016 Amber Miller) (Ack 20:10 Yahaira) (Collected 20:13 RMarsden R.N.) (20:50 RMarsden R.N.) BNP Urgent (19:57 12/30/2016 Amber Miller) (Ack 20:10 Yahaira) (Collected 20:13 RMarsden R.N.) (20:50 RMarsden R.N.) US Venous Bilat (Pos D dimer) Urgent (21:03 12/30/2016 Amber Miller) (Ack 21:10 Yahaira) (22:44 RMarsden R.N.) Chest 1V Urgent (21:04 12/30/2016 Amber Miller) (Ack 21:10 Yahaira) (22:18 RMarsden R.N.) MEDICATION ORDERS: IV FLUIDS: IV Saline Lock (19:57 12/30/2016 Amber Miller) (Ack 20:05 RMarsden R.N.) (20:14 RMarsden R.N.) ORDER SHEET NOTES: [Electronically signed by Cherelle Randle R.N. (04:47 12/31/2016)] [Electronically signed by Aren Post MD (07:16 01/01/2017)] [Electronically locked/signed by Cherelle Randle R.N. (04:47 12/31/2016)]
--- NOTE | 2016-12-30 23:21 | DIAGNOSTIC IMAGING REPORT ---
PROCEDURE: US VENOUS - BILATERAL EXT INDICATION: Swelling. Elevated D-dimer. TECHNIQUE: Color Doppler duplex imaging of the deep and superficial venous system without and with compression. COMPARISON: None. FINDINGS: RIGHT LOWER EXTREMITY: Deep and superficial venous system of the right lower extremity is within normal limits. There is no evidence of deep vein thrombosis or superficial thrombophlebitis. LEFT LOWER EXTREMITY: Deep and superficial venous system of the left lower extremity is within normal limits. There is no evidence of deep vein thrombosis or superficial thrombophlebitis. IMPRESSION: 1. Negative venous ultrasound of the bilateral lower extremities.
--- NOTE | 2017-01-01 07:16 | ED DISCHARGE INSTRUCTIONS ---
Patient: PHILLIP COSTA General Instructions [facility] VisitID: [id number] [address] [place] [address] 86y, M Registration Date/Time: 12/30/2016 Bilateral leg edema : Improved Pre-renal azotemia due to 2 diuretics. Hypokalemia due to lasix. Elevated WBC. INSTRUCTIONS Elevate affected areas above chest level until better (especially at night.). No strenuous activity. Rest. (Stop lasix unless legs swell badly again.). Warnings: Further evaluation is necessary. GENERAL WARNINGS: Return or contact your physician immediately if your condition worsens or changes unexpectedly, if not improving as expected, or if other problems arise. Prescription Medications: Potassium 10 meq po q day for 3 days. Follow-up: Follow up with your doctor in one week as scheduled. Understanding of the discharge instructions verbalized by patient and family. No strenuous activity. Rest. (Electronically signed by Aren Post MD 01/01/2017 7:16)
--- NOTE | 2017-01-01 07:16 | ED MAR SUMMARY ---
..... Medication Administration Record [facility] [address] [place], [place] [id number] Patient: PHILLIP COSTA Visit ID: [id number] 86y, M Weight: 88.9 kg Height/Length: 72 in BMI: 26.6 ALLERGIES: No Known Drug Allergy
--- NOTE | 2017-01-01 07:16 | ED MED RECONCILIATION SUMMARY ---
Patient: PHILLIP COSTA Medication Reconciliation Report [facility] VisitID: [id number] [address] [place] [address] 86y, M Registration Date/Time: 12/30/2016 Weight: 88.9 kg Height/Length: 72 in. BMI: 26.6 ALLERGIES: No Known Drug Allergy The patient's Home Medications are listed below: THE FOLLOWING MEDICATIONS NEED TO BE RECONCILED: Albuterol Sulfate Inhalation Amoxicillin Oral (250 mg) 1 capsule Aspirin Childrens Oral Calcium 500 Oral Chlorthalidone Oral Furosemide Oral Losartan Potassium Oral (100 mg), daily Omeprazole Oral 10 mg Percocet Oral 5/325 mg, 3x a day, pt reports sometimes he takes this 1-2 times per day. Symbacort TERAZOSIN HCl Oral (10 mg) 1 capsule The source(s) of the original Home Medication information: Not obtained. The following Medications were given to the patient in the Emergency Department: None. The following Medications were prescribed to the patient: Potassium 10 meq po q day for 3 days. -- Aren Post MD
--- NOTE | 2017-01-01 07:16 | ED MAR SUMMARY ---
..... Medication Administration Record [facility] [address] [place], [place] [id number] Patient: PHILLIP COSTA Visit ID: [id number] 86y, M Weight: 88.9 kg Height/Length: 72 in BMI: 26.6 ALLERGIES: No Known Drug Allergy
--- NOTE | 2017-01-01 07:16 | ED DISCHARGE INSTRUCTIONS ---
Patient: PHILLIP COSTA General Instructions [facility] VisitID: [id number] [address] [place] [address] 86y, M Registration Date/Time: 12/30/2016 Bilateral leg edema : Improved Pre-renal azotemia due to 2 diuretics. Hypokalemia due to lasix. Elevated WBC. INSTRUCTIONS Elevate affected areas above chest level until better (especially at night.). No strenuous activity. Rest. (Stop lasix unless legs swell badly again.). Warnings: Further evaluation is necessary. GENERAL WARNINGS: Return or contact your physician immediately if your condition worsens or changes unexpectedly, if not improving as expected, or if other problems arise. Prescription Medications: Potassium 10 meq po q day for 3 days. Follow-up: Follow up with your doctor in one week as scheduled. Understanding of the discharge instructions verbalized by patient and family. No strenuous activity. Rest. (Electronically signed by Aren Post MD 01/01/2017 7:16)
--- NOTE | 2017-01-01 07:16 | ED MED RECONCILIATION SUMMARY ---
Patient: PHILLIP COSTA Medication Reconciliation Report [facility] VisitID: [id number] [address] [place] [address] 86y, M Registration Date/Time: 12/30/2016 Weight: 88.9 kg Height/Length: 72 in. BMI: 26.6 ALLERGIES: No Known Drug Allergy The patient's Home Medications are listed below: THE FOLLOWING MEDICATIONS NEED TO BE RECONCILED: Albuterol Sulfate Inhalation Amoxicillin Oral (250 mg) 1 capsule Aspirin Childrens Oral Calcium 500 Oral Chlorthalidone Oral Furosemide Oral Losartan Potassium Oral (100 mg), daily Omeprazole Oral 10 mg Percocet Oral 5/325 mg, 3x a day, pt reports sometimes he takes this 1-2 times per day. Symbacort TERAZOSIN HCl Oral (10 mg) 1 capsule The source(s) of the original Home Medication information: Not obtained. The following Medications were given to the patient in the Emergency Department: None. The following Medications were prescribed to the patient: Potassium 10 meq po q day for 3 days. -- Aren Post MD
== END 2016-12-30 23:26 | disposition home or self-care (01) ==
LOC: ED SRH 18:01
DX: R60.0 Localized edema (principal); R39.2 Extrarenal uremia; T50.1X5A Adverse effect of loop [high-ceiling] diuretics, initial encounter; D72.829 Elevated white blood cell count, unspecified; J44.9 Chronic obstructive pulmonary disease, unspecified; Z99.81 Dependence on supplemental oxygen; Z79.899 Other long term (current) drug therapy; Z79.891 Long term (current) use of opiate analgesic; Z79.2 Long term (current) use of antibiotics; Z79.51 Long term (current) use of inhaled steroids
CPT/HCPCS: 90100; 91320; 91556; 95059